=== PATIENT | male | born 1965 | race Caucasian/White ===

== ENCOUNTER 2020-06-02 05:21 | Inpatient (IN) | payer OTHER ==
[~2020-06-02] VITALS: Ht 180.3 cm; Wt 92.5 kg
--- NOTE | 2020-06-02 05:22 | NUR ---
PT AAOX4. BIBRA 102 FROM HOME C/O SOB. PER RA PT WAS GIVEN 2 SPRAYS OF NITRO 0.8MG EACH GIVEN ASSOCIATE ACCOUNTANT. PT PLACED IN BED 8 ON EDI COORDINATOR AND PULSE OX. PT NTOED TO BED SAT 94%, PLACED ON 2L NC, SAT 98%. AWAITING ER MD FOR EVAL. IV LINE PLACED ON RH 20G, BLOOD WORK COLLECTED, SENT TO LAB.
--- NOTE | 2020-06-02 05:57 | NUR ---
RADIOLOGY AT BEDSIDE
[2020-06-02 06:01] LABS: BASOPHILS # (AUTO) 0.1 /CMM (0.0-0.2); BASOPHILS % (AUTO) 0.4 % (0.0-2.0); EOSINOPHILS % (AUTO) 1.5 % (0.0-6.0); HEMATOCRIT 41 % (39-51); HEMOGLOBIN 13.2 g/dL (13.5-17.5); LYMPHOCYTES # (AUTO) 0.6 /CMM (0.8-4.8); LYMPHOCYTES % (AUTO) 4.4 % (20.0-44.0); MEAN CORPUSCULAR HGB CONC 33 g/dl (31.0-36.0); MEAN CORPUSCULAR VOLUME 86 fL (80-96); MONOCYTES # (AUTO) 0.9 /CMM (0.1-1.30); MONOCYTES % (AUTO) 6.4 % (2.0-12.0); NEUTROPHILS # (AUTO) 12.4 /CMM (1.8-8.9); NEUTROPHILS % (AUTO) 87.3 % (43.0-81.0); PLATELET COUNT (AUTO) 233 /CMM (150-450); RED BLOOD CELL COUNT(AUTO) 4.72 MIL/uL (4.5-6.0); WHITE BLOOD COUNT (AUTO) 14.2 K/uL (4.3-11.0)
[2020-06-02 06:09] LABS: CALCIUM, SERUM 8.9 mg/dL (8.5-10.1); CARBON DIOXIDE 25 mmol/L (21-32); CHLORIDE 103 mmol/L (98-107); CREATININE 1.3 mg/dL (0.6-1.3); GLUCOSE 103 mg/dL (74-106); POTASSIUM 4.3 mmol/L (3.5-5.1); SODIUM SERUM 137 mmol/L (136-145); UREA NITROGEN, BLOOD 17 mg/dL (7-18)
[2020-06-02] MEDS ORDERED: FUROSEMIDE 40 MG/4 ML VIAL ONE (06:13)
--- NOTE | 2020-06-02 06:20 | NUR ---
HECTORID SWABBED, SENT TO LAB.
[2020-06-02 06:22] LABS: ALANINE AMINOTRANSFERASE 31 U/L (12-78); ALBUMIN 3.7 g/dL (3.4-5.0); ALKALINE PHOSPHATASE 140 U/L (46-116); ASPARTATE AMINOTRANSFERASE 27 U/L (15-37); B-TYPE NATRIURETIC PEPTIDE 2888 PG/ML (0-125); BILIRUBIN,DIRECT 0.2 mg/dL (0.0-0.2); BILIRUBIN,TOTAL 0.7 mg/dL (0.2-1.0); TOTAL PROTEIN, SERUM 8.5 g/dL (6.4-8.2)
[2020-06-02] MEDS ORDERED: FUROSEMIDE 40 MG/4 ML VIAL IV ONE (06:30)
--- NOTE | 2020-06-02 07:22 | NUR ---
LAB CALLED REGARDING NEGATIVE COVID RESULT.
--- NOTE | 2020-06-02 08:02 | NUR ---
Call made to [facility] for admission. Assigned to Bed 314-2 per nursing supervisor keymodule assembly
[2020-06-02 08:30] VITALS: BP 156/98
[2020-06-02] MEDS ORDERED: ONDANSETRON HCL/PF 4 MG/2 ML VIAL IVP PRN ×2 (08:30→08:45)
[2020-06-02] MEDS ORDERED: MAGNESIUM HYDROXIDE 30 ML UDC PO PRN ×2 (08:30→08:45)
[2020-06-02] MEDS ORDERED: ACETAMINOPHEN 325 MG TABLET PO PRN ×2 (08:30→08:45)
[2020-06-02] MEDS ORDERED: MAG HYDROX/AL HYDROX/SIMETH 30 ML UDC PO PRN ×2 (08:30→08:45)
[2020-06-02] MEDS ORDERED: PANTOPRAZOLE 40 MG TABLET.DR PO SCH (08:30)
[2020-06-02] MEDS ORDERED: LORAZEPAM INJ 2 MG/ML VIAL IV PRN ×2 (08:30→08:45)
[2020-06-02] MEDS ORDERED: Z GUARD REMEDY 2 OZ OINT TP PRN ×2 (08:30→08:45)
[2020-06-02] MEDS ORDERED: ENOXAPARIN SODIUM 40 MG/0.4 ML DISP.SYRIN SQ SCH (08:30)
[2020-06-02] MEDS ORDERED: HYDROCODONE/APAP 5/325MG TABLET PO PRN (08:30)
[2020-06-02] MEDS ORDERED: TEMAZEPAM 15 MG CAPSULE PO PRN ×2 (08:30→08:45)
[2020-06-02] MEDS ORDERED: FURO-145 PO (08:37)
[2020-06-02] MEDS ORDERED: LISI10TA29 PO (08:37)
[2020-06-02] MEDS ORDERED: ASPI-1169 PO (08:37)
--- NOTE | 2020-06-02 08:42 | NUR ---
REPORT GIVEN TO SPEEDY QUEZADA FOR ELIS.
[2020-06-02] MEDS ORDERED: FUROSEMIDE 40 MG/4 ML VIAL IV SCH ×2 (09:00→09:15)
[2020-06-02] MEDS: ENOXAPARIN SODIUM 40 MG/0.4 ML DISP.SYRIN SQ SCH (09:00)
--- NOTE | 2020-06-02 09:00 | NUR ---
IRON MINER BLASTING NOTE PATIENT TRANSFERRED TO [facility]. PATIENT IS AWAKE IN BED. A/O X3 AND HUNGARIAN SPEAKING. NO COMPLAINT OF PAIN OR NAUSEA. CURRENTLY ON 2L NC WITH NO RESPIRATORY DISTRESS PRESENT. SINUS RHYTHM RECORDED ON EXTERNAL MONITOR. ON BEDREST WITH BATHROOM PRIVILEGES. SELF AMBULATORY. REDNESS PRESENT ON B LEGS. EDEMA PRESENT ON B LEGS. CARDIAC DIET. WEIGHT OF 217 ON ADMISSION. HL PRESENT ON R HAND 20G. SAFETY MEASURES IN PLACE. SIDE RAILS RAISED. BED LOWERED. CALL LIGHT WITHIN REACH. WILL CONTINUE TO MONITOR.
[2020-06-02] MEDS: FUROSEMIDE 40 MG/4 ML VIAL IV SCH ×3 (10:00→17:50)
[2020-06-02] MEDS: POTASSIUM CHLORIDE 20 MEQ TAB.PRT.SR PO SCH ×3 (10:17→14:14)
[2020-06-02] MEDS: ASPIRIN 81 MG TAB.CHEW PO SCH (10:17)
[2020-06-02] MEDS: LISINOPRIL (10MG) 10 MG TABLET PO SCH (10:18)
--- NOTE | 2020-06-02 10:32 | NUR ---
RN MEDICINE PATIENT REFUSE FUROSEMIDE 40 MG DUE TO PAINS DURING URINATING. EDUCATED ON RISKS AND BENEFITS OF DOING SO. WILL CONTINUE TO MONITOR.
[2020-06-02 16:00] VITALS: BP 159/97
--- NOTE | 2020-06-02 17:54 | NUR ---
RN NOTE PATIENT RUNNING FEVER OF >100F. ICE PACKS AND TYLENOL GIVEN. WILL CONTINUE TO MONITOR.
--- NOTE | 2020-06-02 17:55 | NUR ---
RN CLOSING NOTE PATIENT IS AWAKE IN BED. A/O X3 AND RUSSIAN SPEAKING. LETHARGY NOTED. NO COMPLAINT OF PAIN OR NAUSEA. CURRENTLY ON 2L NC WITH NO RESPIRATORY DISTRESS PRESENT. SINUS RHYTHM RECORDED ON EXTERNAL MONITOR. ON BEDREST WITH BATHROOM PRIVILEGES. SELF AMBULATORY. REDNESS PRESENT ON B LEGS. EDEMA PRESENT ON B LEGS. HL PRESENT ON R HAND 20G. ROUTINE MEDS GIVEN. SAFETY MEASURES IN PLACE. SIDE RAILS RAISED. BED LOWERED. CALL LIGHT WITHIN REACH. REPORT TO BE GIVEN TO NIGHT NURSE FOR ELIS.
[2020-06-02 20:00] VITALS: BP 122/78
--- NOTE | 2020-06-02 20:09 | NUR ---
LABORATORY SAMPLE CARRIER OPENING NOTES PATIENT WAS SEEN AWAKE IN BED. PT IS ALERT AND ORIENTED X3. PT HAS CELLULITIS ON HIS LEFT LEG. PT HAS A RIGHT HAND IV ACCESS #20 GAUGE. IV ACCESS INTACT AND PATENT. SAFETY PRECAUTIONS IN PLACE. PT IS ABLE TO MAKE HIS NEEDS KNOWN. WILL CONTINUE TO MONITOR THE PATIENT.
[2020-06-03] VITALS: BP 136/84
[2020-06-03 04:00] VITALS: BP 132/87
--- NOTE | 2020-06-03 07:46 | NUR ---
INTERVENTIONAL NEURORADIOLOGIST CLOSING NOTES PATIENT WAS SEEN AWAKE IN BED. PT IS ALERT AND ORIENTED X3. PT HAS CELLULITIS ON HIS LEFT LEG. PT HAS A LEFT WRIST IV ACCESS #22 GAUGE. IV ACCESS INTACT AND PATENT. SAFETY PRECAUTIONS IN PLACE. PT IS ABLE TO MAKE HIS NEEDS KNOWN. WILL ENDORSE CARE TO DAY SHIFT NURSE.
[2020-06-03] MEDS: PANTOPRAZOLE 40 MG TABLET.DR PO SCH (07:56)
[2020-06-03 08:00] VITALS: BP 116/89
--- NOTE | 2020-06-03 08:00 | NUR ---
RN OPENING NOTE RECEIVED PATIENT IN BED, AO X 3 ABLE TO RESPONDS ALL STIMULI. DENIES PAIN OR DISTRESS, SIN IS WARM TO TOUCH, KEEP CLEAN/DRY. RESPIRATORY EVEN AND UNLABORED WITH OXYGEN AT 2PLM VIA NC. KEPT ELEVATED HOB FOR ENSURE AIRWAY AND ASPIRATION PRECAUTION, ALSO LOWEST BED POSITION. CALL LIGHT WITHIN REACH, WILL CONTINUE TO MONITOR.
[2020-06-03] MEDS: ASPIRIN 81 MG TAB.CHEW PO SCH (08:47)
[2020-06-03] MEDS: ENOXAPARIN SODIUM 40 MG/0.4 ML DISP.SYRIN SQ SCH (08:51)
[2020-06-03] MEDS: LISINOPRIL (10MG) 10 MG TABLET PO SCH (08:51)
[2020-06-03] MEDS ORDERED: FUROSEMIDE 40 MG/4 ML VIAL IV SCH (09:00)
--- NOTE | 2020-06-03 09:00 | NUR ---
PT ON LASIX AND BP 116/89, BP MEDS WILL HOLD AT THIS TIME.
[2020-06-03] MEDS: POTASSIUM CHLORIDE 20 MEQ TAB.PRT.SR PO SCH ×3 (11:46→14:03)
[2020-06-03] MEDS: FUROSEMIDE 100 MG/10 ML VIAL IV SCH ×3 (11:47→20:56)
--- NOTE | 2020-06-03 14:24 | NUR ---
PATIENT NOTICED CELLULITIS ON LEFT LOWER LEG BUT NO ABT ORDER SO FAR, INFORMED MD REGARDING ABOVE. A WAITING RESPONDS.
--- NOTE | 2020-06-03 15:45 | NUR ---
RECEIVED NEW ORDER ATB IV, UA, AND DUPLEX VENOUS BILATERAL LOWER EXT. NOTED AND CARRY OUT.
[2020-06-03 16:05] VITALS: BP 134/83
[2020-06-03 17:19] LABS: BILIRUBIN,URINE NEGATIVE (NEGATIVE); COLOR,URINE YELLOW (YELLOW); LEUKOCYTE ESTERASE ,URINE NEGATIVE (NEGATIVE); NITRITE, URINE NEGATIVE (NEGATIVE); PH,URINE 6.5 (5.0-8.0); PROTEIN,URINE NEGATIVE (NEGATIVE); UGLUCOSE NEGATIVE (NEGATIVE); UROBILINOGEN,URINE 0.2 EU/dL (0.2)
[2020-06-03] MEDS: LEVOFLOXACIN 500 MG /D5W 100ML 500 MG in PREMIX 1 EA IV SCH (17:59)
--- NOTE | 2020-06-03 18:00 | NUR ---
RN CLOSING NOTE PATIENT IN ROOM, REMAINS AO X 3, RESTING AND DOES PAIN OR DISTRESS. SKIN IS WARM TO TOUCH, STARTED ATB IV PIGGY FOR CELLULITIS ON LEFT LEG NO S/S OF ADVERSE REACTION OBSERVED. RESPIRATORY EVEN AND UNLABORED ON ROOM AIR. KEPT ELEVATED HOB FOR ENSURE AIRWAY AND ASPIRATION PRECAUTION ALSO LOWEST BED POSITION FOR SAFETY. RECEIVED MEDICATION FOR TONIGHT DOSAGE X 3. WILL ENDORSE MEXICAN FOOD MACHINE TENDER.
[2020-06-03] MEDS: HYDROCODONE/APAP 5/325MG TABLET PO PRN (18:05)
--- NOTE | 2020-06-03 19:30 | NUR ---
MS RN OPENING NOTE RECEIVED PATIENT IN BED. A/OX3. TOLERATING ROOM AIR. RESPIRATION ARE EVEN AND UNLABORED. NO S/S SOB NOTED. NO S/S PAIN NOTED. IN NO APPARENT DISTRESS. IV ACCESS IN LEFT WRIST #22 PATENT AND SALINE LOCKED. BED IS LOW AND LOCKED, HOB ELEVATE DIN SEMI FOWLERS, SIDE RAILS UP X2, CALL LIGHT WITHIN REACH. WILL CONTINUE TO MONITOR THROUGHOUT SHIFT.
[2020-06-03 20:00] VITALS: BP 121/79
[2020-06-03] MEDS ORDERED: FUROSEMIDE 100 MG/10 ML VIAL ONE (20:54)
[2020-06-04 06:43] LABS: BASOPHILS # (AUTO) 0.1 /CMM (0.0-0.2); BASOPHILS % (AUTO) 0.5 % (0.0-2.0); EOSINOPHILS % (AUTO) 1.6 % (0.0-6.0); HEMATOCRIT 47 % (39-51); HEMOGLOBIN 15.8 g/dL (13.5-17.5); LYMPHOCYTES # (AUTO) 0.8 /CMM (0.8-4.8); LYMPHOCYTES % (AUTO) 7.3 % (20.0-44.0); MEAN CORPUSCULAR HGB CONC 34 g/dl (31.0-36.0); MEAN CORPUSCULAR VOLUME 85 fL (80-96); NEUTROPHILS # (AUTO) 8.8 /CMM (1.8-8.9); NEUTROPHILS % (AUTO) 81.6 % (43.0-81.0); PLATELET COUNT (AUTO) 186 /CMM (150-450); RED BLOOD CELL COUNT(AUTO) 5.51 MIL/uL (4.5-6.0); WHITE BLOOD COUNT (AUTO) 10.8 K/uL (4.3-11.0)
--- NOTE | 2020-06-04 07:03 | NUR ---
MS RN OPENING NOTE RECEIVED PT AWAKE IN BED AT THIS TIME. A/OX4. PT ABLE TO VERBALIZE NEEDS.NO SOB NOTED. CO C/O PAIN AT THIS TIME, NO S/O OF ANY ACUTE DISTRESS NOTED. PT STABLE ON RA. IV ACCESS NOTED IN LEFT WRIST G#22 INTACT, PATENT AND FLUSHING WELL. SAFETY PRECAUTIONS IN PLACE AND MAINTAINED AT ALL TIMES. BED IN LOWEST LOCKED POSITION, HOB ELEVATED, SIDE RAILS UP X2, CALL LIGHT AND TABLE WITHIN REACH. WILL CONTINUE TO MONITOR
--- NOTE | 2020-06-04 07:14 | NUR ---
MS RN CLOSING NOTE PATIENT IN BED. A/OX3. NO RESP DISTRESS NOTED. PAIN MANAGED WITH NORCO. NO DISTRESS. IV ACCESS MAINTAINED IN LEFT WRIST #2. BED REMAINS LOW AND LOCKED, HOB ELEVATE DIN SEMI FOWLERS, SIDE RAILS UP X2, CALL LIGHT WITHIN REACH. WILL ENDORSE TO ONCOMING SHIFT.
[2020-06-04 07:20] LABS: BILIRUBIN,TOTAL 0.6 mg/dL (0.2-1.0); CALCIUM, SERUM 8.8 mg/dL (8.5-10.1); CREATININE 1.5 mg/dL (0.6-1.3); MAGNESIUM 2.6 mg/dL (1.8-2.4); PHOSPHORUS 2.7 mg/dL (2.5-4.9); POTASSIUM 4.1 mmol/L (3.5-5.1); TOTAL PROTEIN, SERUM 8.8 g/dL (6.4-8.2)
[2020-06-04 08:00] VITALS: BP 112/73
[2020-06-04] MEDS: ASPIRIN 81 MG TAB.CHEW PO SCH (08:33)
[2020-06-04] MEDS: LISINOPRIL (10MG) 10 MG TABLET PO SCH (08:33)
[2020-06-04] MEDS: PANTOPRAZOLE 40 MG TABLET.DR PO SCH (08:33)
[2020-06-04] MEDS: ENOXAPARIN SODIUM 40 MG/0.4 ML DISP.SYRIN SQ SCH (08:43)
[2020-06-04 15:45] VITALS: BP 122/75
[2020-06-04] MEDS: LEVOFLOXACIN 500 MG /D5W 100ML 500 MG in PREMIX 1 EA IV SCH (18:02)
--- NOTE | 2020-06-04 18:44 | NUR ---
MS RN CLOSING NOTES PT AWAKE IN BED AT THIS TIME. PT REMAINED STABLE THROUGHOUT SHIFT.ALL CARE, NEEDS, MEDICATIONS AND TREATMENT ADMINISTERED ANTICIPATED PER ORDER. LINENS KEPT CLEAN. SAFETY PRECAUTIONS IN PLACE AND MAINTAINED AT ALL TIMES. BED IN LOWEST LOCKED POSITION, HOB ELEVATED, SIDE RAILS UPX2, CALL LIGHT AND TABLE WITHIN REACH. WILL ENDORSE TO FAMILY LIFE EDUCATOR NURSE FOR ELIS
[2020-06-04 19:13] LABS: BILIRUBIN,URINE NEGATIVE (NEGATIVE); COLOR,URINE YELLOW (YELLOW); LEUKOCYTE ESTERASE ,URINE NEGATIVE (NEGATIVE); NITRITE, URINE NEGATIVE (NEGATIVE); PH,URINE 5.5 (5.0-8.0); PROTEIN,URINE NEGATIVE (NEGATIVE); UGLUCOSE NEGATIVE (NEGATIVE); UROBILINOGEN,URINE 0.2 EU/dL (0.2)
[2020-06-04 19:17] LABS: CREATININE, URINE 137.3 MG/DL (30.0-125.0); EOSINOPHIL,URINE None Seen; URINE TOTAL PROTEIN 34.4 mg/dL (0-11.9)
--- NOTE | 2020-06-04 19:30 | NUR ---
RN opening notes Pt is laying in bed comfortably watching TV. Pt is alert and orientedX4. Respiration is normal in room air. No SOB. No S/S of distress noted. IV site at L wrist # 22 is clean, intact and infuising well levaquin. Noted BLE cellulitis. Pt is able to ambulate with a steady gait. Safety precautions is maintained. Bed at low position, brakes locked, side rails upX2, hob elevated and call light is within reach. Will continue to monitor.
[2020-06-04 20:00] VITALS: BP 114/73
[2020-06-04 20:01] VITALS: BP 114/73
--- NOTE | 2020-06-05 00:20 | NUR ---
RN notes Pt's complaining of itchy on L leg and above the knee. Informed and notified Dr. Henson. ordered zguard lotion and benadryl 25 m/po/one time if the lotion does not work. Applied lotion to L leg and above the knee. Pt verbalized understanding. Will continue to monitor.
[2020-06-05] MEDS: HYDROCODONE/APAP 5/325MG TABLET PO PRN (00:26)
--- NOTE | 2020-06-05 00:27 | NUR ---
RN notes Pt is complaining of pain on Left leg and L knee and requesting pain meds. Administered norco 5/po/prn as ordered for pain per Pt' requested. Safety precautions is maintained. Will continue to monitor.
--- NOTE | 2020-06-05 00:31 | NUR ---
RN notes Asked Pt about itchiness on left leg and above the knee. Pt stated "the lotion help with itchiness." Will continue to monitor.
[2020-06-05 06:38] LABS: BASOPHILS # (AUTO) 0.1 /CMM (0.0-0.2); BASOPHILS % (AUTO) 0.9 % (0.0-2.0); EOSINOPHILS % (AUTO) 3.7 % (0.0-6.0); HEMATOCRIT 47 % (39-51); HEMOGLOBIN 15.5 g/dL (13.5-17.5); LYMPHOCYTES # (AUTO) 1.2 /CMM (0.8-4.8); LYMPHOCYTES % (AUTO) 15.8 % (20.0-44.0); MEAN CORPUSCULAR HGB CONC 33 g/dl (31.0-36.0); MEAN CORPUSCULAR VOLUME 86 fL (80-96); MONOCYTES # (AUTO) 1.1 /CMM (0.1-1.30); MONOCYTES % (AUTO) 13.8 % (2.0-12.0); NEUTROPHILS % (AUTO) 65.8 % (43.0-81.0); PLATELET COUNT (AUTO) 212 /CMM (150-450); RED BLOOD CELL COUNT(AUTO) 5.42 MIL/uL (4.5-6.0); WHITE BLOOD COUNT (AUTO) 7.7 K/uL (4.3-11.0)
--- NOTE | 2020-06-05 06:50 | NUR ---
RN closing notes Pt is resting in bed comfortably. Pt is alert and orientedX4. Respiration is normal in room air. No SOB. No S/S of distress noted. VS is stable. Afebrile. IV site at L wrist # 22 is clean, intact and SL. Kept pt clean, dry and comfortable. Safety precautions is maintained. Bed at low position, brakes locked, side rails upX2, hob elevated and call light is within reach. Will endorse to morning nurse for ELIS.
[2020-06-05 07:06] LABS: CALCIUM, SERUM 8.9 mg/dL (8.5-10.1); CREATININE 1.4 mg/dL (0.6-1.3); MAGNESIUM 2.7 mg/dL (1.8-2.4); PHOSPHORUS 3.3 mg/dL (2.5-4.9); POTASSIUM 4.4 mmol/L (3.5-5.1)
--- NOTE | 2020-06-05 07:57 | NUR ---
MS RN OPENING NOTE RECEIVED PT AWAKE IN BED AT THIS TIME. A/OX4. PT ABLE TO MAKE NEEDS KNOWN. NO SOB NOTED. NO C/O PAIN AT THIS TIME, NO S/O OF ANY ACUTE DISTRESS NOTED. PT STABLE ON RA. IV ACCESS NOTED IN LEFT WRIST G#22 INTACT, PATENT AND FLUSHING WELL. PT ABLE TO AMBULATE WITH A STEADY GAIT. BLE CELLULITIS NOTED. SAFETY PRECAUTIONS IN PLACE AND MAINTAINED AT ALL TIMES. BED IN LOWEST LOCKED POSITION, HOB ELEVATED, SIDE RAILS UP X2, CALL LIGHT AND TABLE WITHIN REACH. WILL CONTINUE TO MONITOR
[2020-06-05 08:00] VITALS: BP 126/84
--- NOTE | 2020-06-05 08:04 | NUR ---
WOUND CARE CONSULT: PT PRESENTS WITH LEFT LOWER LEG SWELLING, SOME REDNESS AND DARK PINK/RED AREAS TO LEFT KNEE AND TO ANTERIOR THIGH. DEFER TO PMD. NO OPEN WOUNDS NOTED.
[2020-06-05 08:31] VITALS: BP 126/84
[2020-06-05] MEDS: PANTOPRAZOLE 40 MG TABLET.DR PO SCH (08:31)
[2020-06-05] MEDS: LISINOPRIL (10MG) 10 MG TABLET PO SCH (08:31)
[2020-06-05] MEDS: ENOXAPARIN SODIUM 40 MG/0.4 ML DISP.SYRIN SQ SCH (08:33)
[2020-06-05] MEDS: ASPIRIN 81 MG TAB.CHEW PO SCH (08:34)
[2020-06-05] MEDS ORDERED: LISI10TA29 PO (14:13)
[2020-06-05] MEDS ORDERED: LEVO500T90 PO (14:13)
--- NOTE | 2020-06-05 15:45 | NUR ---
PT PENDING DISCHARGE TO HOME AFTER LIFEVEST FITTING. PT LEFT AMA AT THIS TIME STATING " I AM LOSING MY CAT AND EVERYTHING AND CAN NOT WAIT FOR THE LIFE VEST". PT WOULD NOT EXPLAIN FURTHER WHAT HE MEANT BY "I AM LOSING EVERYTHING". ALL BENEFITS AND RISK OF LEAVING AMA PROVIDED, PT VERBALIZED UNDERSTANDING. CHRISTIAN, CHARGE NURSE, DR ALARCON MAKE AWARE. ANNIE, CASE MANAGEMENT CONTACTED. ANNIE SPOKE WITH PATIENT LETTING PATIENT KNOW THAT, HE NEEDS THE LIFE VEST PRIOR TO BEING DISCHARGE. PT REMAINED VERBALIZED UNDERSTANDING. PT'S BELONGING ACCOUNTED FOR, SIGNED BY PT, AND WITH PT. ID BAND REMOVED. IV ACCESS REMOVED, PRESSURE APPLIED, AND SECURED WITH GAUZE AND TAPE. NO S/O BLEEDING OR INFILTRATION NOTED. PICTURES TAKEN AND FILED IN CHART.
[2020-06-05] MEDS ORDERED: LEVOFLOXACIN (250MG) 250 MG TABLET PO SCH (18:00)
== END 2020-06-05 15:50 | disposition left against medical advice (07) | DRG 194 ==
LOC: ER 05:21 → TELE 09:07 → MED 06-03 09:48
PROVIDERS: ADMIT Nurse Practitioner Acute Care; ATTEND Student in an Organized Health Care Education/Training Program
DX: I13.0 Hypertensive heart and chronic kidney disease with heart failure and stage 1 through stage 4 chronic kidney disease, or unspecified chronic kidney disease (principal); N17.0 Acute kidney failure with tubular necrosis; E87.2 Acidosis; E22.2 Syndrome of inappropriate secretion of antidiuretic hormone; L03.116 Cellulitis of left lower limb; I50.23 Acute on chronic systolic (congestive) heart failure; E78.5 Hyperlipidemia, unspecified; N18.9 Chronic kidney disease, unspecified; J44.9 Chronic obstructive pulmonary disease, unspecified; Z88.0 Allergy status to penicillin; Z90.49 Acquired absence of other specified parts of digestive tract; F17.200 Nicotine dependence, unspecified, uncomplicated; Z91.14 Patient's other noncompliance with medication regimen; F41.9 Anxiety disorder, unspecified; N39.0 Urinary tract infection, site not specified; R09.02 Hypoxemia; R60.0 Localized edema; Z20.822 Contact with and (suspected) exposure to COVID-19
CPT/HCPCS: 36415; 71045-TC; 80048-TC; 80053-TC; 80076-TC; 82570-TC; 83605-TC; 83735-TC; 83880; 84100-TC; 84155-TC; 84300-TC; 84484-TC; 85025-TC; 85730-TC; 87040-TC; 87081-TC; 87086-TC; 93307-TC; 93970-TC; A4216; C9803; G0378; J1650; J1940; J1956; J7050

== ENCOUNTER 2020-07-20 04:13 | Emergency (ER) | payer OTHER ==
[~2020-07-20] VITALS: Ht 180.3 cm; Wt 95.3 kg
[~2020-07-20 04:13] MED LIST: ASPI-1169 PO; LEVO500T90 PO; LISI10TA29 PO
--- NOTE | 2020-07-20 04:26 | NUR ---
BIBRA 60 FOR C.O SOB X 3 DAYS WORSE ON SMOKING. PT W/ HX OF COPD AND CHF. HOLDING O2 SAT OF 98% ON RA. PT WAS PLACED IN ER BED 6, ON MONITOR
[2020-07-20] MEDS ORDERED: ALBUTEROL FS 2.5 MG/3 ML VIAL.NEB NEB ONE (04:30)
[2020-07-20] MEDS ORDERED: FUROSEMIDE 40 MG/4 ML VIAL IV ONE (04:30)
[2020-07-20] MEDS ORDERED: NITROGLYCERIN PACKET 1 GM PACKET TD ONE (04:30)
[2020-07-20] MEDS ORDERED: ENALAPRILAT DIHYD. (2.5MG/2ML) 1.25 MG/ML VIAL IV ONE (04:30)
[2020-07-20] MEDS ORDERED: ALBUTEROL FS 2.5 MG/3 ML VIAL.NEB ONE (04:31)
[2020-07-20 04:49] LABS: BASOPHILS # (AUTO) 0.1 /CMM (0.0-0.2); BASOPHILS % (AUTO) 1.3 % (0.0-2.0); EOSINOPHILS % (AUTO) 3.3 % (0.0-6.0); HEMATOCRIT 39 % (39-51); HEMOGLOBIN 12.6 g/dL (13.5-17.5); LYMPHOCYTES # (AUTO) 1.1 /CMM (0.8-4.8); LYMPHOCYTES % (AUTO) 21.7 % (20.0-44.0); MEAN CORPUSCULAR HGB CONC 33 g/dl (31.0-36.0); MEAN CORPUSCULAR VOLUME 89 fL (80-96); MONOCYTES # (AUTO) 0.4 /CMM (0.1-1.30); MONOCYTES % (AUTO) 8.4 % (2.0-12.0); NEUTROPHILS # (AUTO) 3.2 /CMM (1.8-8.9); NEUTROPHILS % (AUTO) 65.3 % (43.0-81.0); PLATELET COUNT (AUTO) 176 /CMM (150-450); RED BLOOD CELL COUNT(AUTO) 4.38 MIL/uL (4.5-6.0)
[2020-07-20] MEDS ORDERED: ENALAPRILAT INJ (1.25 MG/ML) 1.25 MG/ML VIAL IV ONE (04:51)
[2020-07-20] MEDS ORDERED: FUROSEMIDE 40 MG/4 ML VIAL ONE (04:51)
[2020-07-20] MEDS ORDERED: NITROGLYCERIN PACKET 1 GM PACKET ONE (04:52)
[2020-07-20 04:58] LABS: CALCIUM, SERUM 8.6 mg/dL (8.5-10.1); CREATININE 1.4 mg/dL (0.6-1.3); POTASSIUM 4.4 mmol/L (3.5-5.1)
[2020-07-20 05:10] LABS: ALBUMIN 3.4 g/dL (3.4-5.0); BILIRUBIN,DIRECT 0.2 mg/dL (0.0-0.2); BILIRUBIN,TOTAL 0.8 mg/dL (0.2-1.0); TOTAL PROTEIN, SERUM 7.9 g/dL (6.4-8.2)
--- NOTE | 2020-07-20 05:38 | NUR ---
DR REDDY AT BED SIDE
--- NOTE | 2020-07-20 06:39 | NUR ---
PAGED DR MIGUEL ANGEL PATINO, PCP TO REPORT THE
[2020-07-20] MEDS ORDERED: FURO-145 PO (09:04)
--- NOTE | 2020-07-20 09:28 | NUR ---
Patient discharged to home in stable condition. Written and verbal after care instructions given. Patient verbalizes understanding of instruction. IV removed. Catheter intact and site benign. Pressure and 4x4 applied to site. No bleeding noted.
[2020-07-20 09:29] VITALS: BP 142/86
== END 2020-07-20 09:29 | disposition home or self-care (01) ==
LOC: ER 04:15
DX: I11.0 Hypertensive heart disease with heart failure (principal); I50.9 Heart failure, unspecified; F17.210 Nicotine dependence, cigarettes, uncomplicated; Z59.0 Homelessness; Z90.49 Acquired absence of other specified parts of digestive tract; J44.9 Chronic obstructive pulmonary disease, unspecified; Z79.82 Long term (current) use of aspirin; Z79.899 Other long term (current) drug therapy; R60.0 Localized edema; R94.31 Abnormal electrocardiogram [ECG] [EKG]; Z20.822 Contact with and (suspected) exposure to COVID-19
CPT/HCPCS: 36415; 71045; 80048; 80076; 83880; 84484 ×2; 85025; 87426; 93005; 94640; 96374; 96375; 99285; 99406; C9803; J1940; J3490

== ENCOUNTER 2020-08-06 03:19 | Inpatient (IN) | payer OTHER ==
[~2020-08-06] VITALS: Ht 185.4 cm; Wt 89.4 kg
[~2020-08-06 03:19] MED LIST changes: +FURO-145 PO
--- NOTE | 2020-08-06 03:19 | NUR ---
C/O SOB HX OF CHF, PT TO BED 5, AAOX4, DENIES ANY CP. PT RECENTLY DC FROM [facility]. PLACED ON MONITOR. KAITLIN GUARDADO AT [facility] FOR EVAL
--- NOTE | 2020-08-06 03:25 | NUR ---
PIV STARTED, UNABLE TO GET BLOOD, PHLEB CALLED AT [facility]
[2020-08-06 04:12] LABS: BASOPHILS # (AUTO) 0.1 /CMM (0.0-0.2); BASOPHILS % (AUTO) 1.2 % (0.0-2.0); EOSINOPHILS % (AUTO) 2.2 % (0.0-6.0); HEMATOCRIT 41 % (39-51); HEMOGLOBIN 12.8 g/dL (13.5-17.5); LYMPHOCYTES % (AUTO) 16.4 % (20.0-44.0); MEAN CORPUSCULAR HGB CONC 31 g/dl (31.0-36.0); MEAN CORPUSCULAR VOLUME 90 fL (80-96); MONOCYTES # (AUTO) 0.6 /CMM (0.1-1.30); MONOCYTES % (AUTO) 9.3 % (2.0-12.0); NEUTROPHILS # (AUTO) 4.5 /CMM (1.8-8.9); NEUTROPHILS % (AUTO) 70.9 % (43.0-81.0); PLATELET COUNT (AUTO) 188 /CMM (150-450); RED BLOOD CELL COUNT(AUTO) 4.54 MIL/uL (4.5-6.0); WHITE BLOOD COUNT (AUTO) 6.4 K/uL (4.3-11.0)
[2020-08-06 04:26] LABS: CALCIUM, SERUM 8.8 mg/dL (8.5-10.1); CREATININE 1.3 mg/dL (0.6-1.3); POTASSIUM 4.8 mmol/L (3.5-5.1)
[2020-08-06] MEDS ORDERED: methylPREDNISolone SOD SUCC 125 MG/2ML VIAL IV ONE (04:30)
[2020-08-06] MEDS ORDERED: methylPREDNISolone SOD SUCC 125 MG/2ML VIAL ONE (04:38)
[2020-08-06 04:39] LABS: ALBUMIN 3.5 g/dL (3.4-5.0); BILIRUBIN,DIRECT 0.2 mg/dL (0.0-0.2); BILIRUBIN,TOTAL 0.6 mg/dL (0.2-1.0); TOTAL PROTEIN, SERUM 7.7 g/dL (6.4-8.2)
[2020-08-06] MEDS ORDERED: ASPIRIN 325 MG TABLET ONE (04:55)
[2020-08-06] MEDS ORDERED: FUROSEMIDE 40 MG/4 ML VIAL ONE (04:55)
[2020-08-06] MEDS ORDERED: FUROSEMIDE 40 MG/4 ML VIAL IV ONE (05:00)
[2020-08-06] MEDS ORDERED: ASPIRIN 325 MG TABLET PO ONE (05:00)
[2020-08-06] MEDS ORDERED: ZOLPIDEM TARTRATE 5 MG TABLET PO PRN (07:00)
[2020-08-06] MEDS ORDERED: ACETAMINOPHEN 325 MG TABLET PO PRN (07:00)
[2020-08-06] MEDS ORDERED: ALBUTEROL FS 2.5 MG/0.5 ML VIAL.NEB NEB PRN (07:00)
[2020-08-06] MEDS ORDERED: HYDROCODONE/APAP 5/325MG TABLET PO PRN (07:00)
[2020-08-06] MEDS ORDERED: ONDANSETRON HCL/PF 4 MG/2 ML VIAL IVP PRN (07:00)
--- NOTE | 2020-08-06 07:27 | NUR ---
REPORT GIVEN TO ARIS RUFF FOR ELIS
[2020-08-06] MEDS: PANTOPRAZOLE 40 MG TABLET.DR PO SCH (07:30)
--- NOTE | 2020-08-06 07:36 | NUR ---
RECEIVED REPORT FROM SPEEDY CARVALHO FOR ELIS. PT IS AAOX4, NOT IN RESPIRATORY DISTRESS, HOOKED TO AUTOMOTIVE INTERNET SALES MANAGER, KEPT RESTED AND COMFORTABLE. WILL CONTINUE TO MONITOR.
[2020-08-06 08:00] VITALS: BP 178/117
--- NOTE | 2020-08-06 08:04 | NUR ---
REPORT GIVEN TO SPEEDY CHEN FOR ELIS.
[2020-08-06 09:00] VITALS: BP 178/117
[2020-08-06] MEDS: ENOXAPARIN SODIUM 40 MG/0.4 ML DISP.SYRIN SQ SCH (09:45)
[2020-08-06] MEDS: ASPIRIN 81 MG TAB.CHEW PO SCH (09:45)
[2020-08-06] MEDS: FUROSEMIDE 20 MG/2 ML VIAL IV SCH ×2 (09:45→18:12)
[2020-08-06] MEDS: DOCUSATE SODIUM 100 MG CAPSULE PO SCH ×2 (09:45→18:12)
[2020-08-06] MEDS: LISINOPRIL (10MG) 10 MG TABLET PO SCH (09:46)
[2020-08-06] MEDS: NICOTINE PATCH (14MG) 14 MG PATCH.TD24 TD SCH (09:46)
[2020-08-06 12:00] VITALS: BP 137/99
[2020-08-06 16:00] VITALS: BP 151/93
--- NOTE | 2020-08-06 19:35 | NUR ---
RN OPENING NOTES RECEIVED PT IN BED AWAKE, A/O X4 PT ON ROOM AIR. NO RESP DISTRESS NOTED. PT DENIES SOB AT THIS TIME. PT TOLERATING WELL. O2 SAT 94% PT ON TELE MONITORING HEART RATE OF 92 NOTED. BASELINE TO PT. PT DENIES PAIN. VERBALIZES DESIRE TO REST. IV SITE FLUSHED ASEPTICALLY. NO S/S OF INFILTRATION NOTED. PT IS AMBULATORY WITH STEADY GAIT. SAFETY MEASURES IN PLACE HOB ELEVATED SIDE RAILS UP X2 BED LOCKED IN LOWEST POSITION WITH BED ALARM ON. CALL LIGHT WITHIN REACH.
[2020-08-06 20:00] VITALS: BP 153/91
[2020-08-07] VITALS: BP 146/96
--- NOTE | 2020-08-07 02:20 | NUR ---
RN NOTE PT AMBULATORY WITH STEADY GAIT, PT REFUSES BED BATH, MOTIVATED TO SELF CARE. HYGIENE PRODUCTS PROVIDED.
[2020-08-07 04:00] VITALS: BP 143/96
[2020-08-07 05:57] LABS: BASOPHILS % (AUTO) 0.2 % (0.0-2.0); HEMATOCRIT 40 % (39-51); LYMPHOCYTES % (AUTO) 8.7 % (20.0-44.0); MEAN CORPUSCULAR HGB CONC 33 g/dl (31.0-36.0); MEAN CORPUSCULAR VOLUME 88 fL (80-96); NEUTROPHILS # (AUTO) 9.3 /CMM (1.8-8.9); NEUTROPHILS % (AUTO) 82.1 % (43.0-81.0); PLATELET COUNT (AUTO) 208 /CMM (150-450); RED BLOOD CELL COUNT(AUTO) 4.54 MIL/uL (4.5-6.0); WHITE BLOOD COUNT (AUTO) 11.3 K/uL (4.3-11.0)
[2020-08-07 06:31] LABS: ALBUMIN 3.3 g/dL (3.4-5.0); BILIRUBIN,TOTAL 0.7 mg/dL (0.2-1.0); CALCIUM, SERUM 8.5 mg/dL (8.5-10.1); CREATININE 1.4 mg/dL (0.6-1.3); MAGNESIUM 2.4 mg/dL (1.8-2.4); PHOSPHORUS 4.4 mg/dL (2.5-4.9); POTASSIUM 4.3 mmol/L (3.5-5.1); TOTAL PROTEIN, SERUM 7.6 g/dL (6.4-8.2)
[2020-08-07 06:49] LABS: THYROID STIMULATING HORMONE 0.228 uIU/mL (0.358-3.74)
--- NOTE | 2020-08-07 07:08 | NUR ---
RN CLOSING NOTE PT STILL REMAINS ON ROOM AIR NO DISTRESS NOTED. ALL NEEDS ATTENDED AT THIS TIME. SOFT FORMED. NO SIGNIFICANT CHANGES TO PT CONDITION THROUGHOUT SHIFT. PT AFEBRILE. ALL SAFETY MEASURES IN PLACE. HOB ELEVATED. SIDE RAILS UP X2 BED LOCKED IN LOWEST POSITION WITH BED ALARM ON. CALL LIGHT WITHIN REACH. ENDORSED TO DAY SHIFT FOR CONTINUATION OF CARE.
--- NOTE | 2020-08-07 07:25 | NUR ---
RN OPENING NOTE PATIENT RECEIVED IN BED RESTING IN SUPINE POSITION. PATIENT A/O X4 AND ON ROOM AIR TOLERATING WELL. NO RESP DISTRESS NOTED. PT DENIES SOB AT THIS TIME. PT TOLERATING WELL. TELE MONITOR ON. PT DENIES PAIN. RIGHT UPPER ARM MIDLINE INTACT AND PATENT, FLUSHED. NO S/S OF INFILTRATION NOTED. SAFETY PRECAUTIONS IMPLEMENTED, SIDE RAILS UP X2, BED LOCKED IN LOWEST POSITION, BED ALARM ON, CALL LIGHT WITHIN REACH. WILL CONTINUE TO MONITOR AND PROVIDE CARE THROUGHOUT SHIFT.
[2020-08-07 08:00] VITALS: BP 141/94
[2020-08-07] MEDS: NICOTINE PATCH (14MG) 14 MG PATCH.TD24 TD SCH ×2 (09:00→09:30)
[2020-08-07] MEDS ORDERED: ENOXAPARIN SODIUM 40 MG/0.4 ML DISP.SYRIN SQ SCH (09:00)
[2020-08-07] MEDS ORDERED: LOSARTAN POTASSIUM 50 MG TABLET PO SCH (09:00)
[2020-08-07] MEDS: FUROSEMIDE 40 MG/4 ML VIAL IV SCH ×3 (09:29→16:16)
[2020-08-07] MEDS: POTASSIUM CHLORIDE 20 MEQ TAB.PRT.SR PO SCH ×3 (09:29→11:26)
[2020-08-07] MEDS: PANTOPRAZOLE 40 MG TABLET.DR PO SCH (09:29)
[2020-08-07] MEDS: DOCUSATE SODIUM 100 MG CAPSULE PO SCH ×3 (09:29→17:00)
[2020-08-07] MEDS: ASPIRIN 81 MG TAB.CHEW PO SCH (09:29)
[2020-08-07] MEDS: LISINOPRIL (10MG) 10 MG TABLET PO SCH (09:30)
[2020-08-07] MEDS: ENOXAPARIN SODIUM 40 MG/0.4 ML DISP.SYRIN SQ SCH (09:34)
[2020-08-07 09:43] LABS: THYROID STIMULATING HORMONE 0.217 uIU/mL (0.358-3.74)
[2020-08-07 12:00] VITALS: BP 132/96
[2020-08-07 16:00] VITALS: BP 134/96
--- NOTE | 2020-08-07 18:45 | NUR ---
RN CLOSING NOTE PATIENT IN BED RESTING IN SUPINE POSITION. PATIENT A/O X4 AND ON O2 THERAPY VIA NC AT 2 LPM TOLERATING WELL. NO RESP DISTRESS NOTED. PT DENIES SOB AT THIS TIME. PT TOLERATING WELL. TELE MONITOR ON. PT DENIES PAIN. RIGHT UPPER ARM MIDLINE INTACT AND PATENT, FLUSHED. NO S/S OF INFILTRATION NOTED. SAFETY PRECAUTIONS IMPLEMENTED, SIDE RAILS UP X2, BED LOCKED IN LOWEST POSITION, BED ALARM ON, CALL LIGHT WITHIN REACH. WILL ENDORSE CARE TO UPCOMING SHIFT.
--- NOTE | 2020-08-07 19:50 | NUR ---
RN OPENING NOTES RECEIVED PT IN BED AWAKE, A/O X4 PT ON 2L OF O2 VIA NASAL CANNULA. NO RESP DISTRESS NOTED. PT DENIES SOB AT THIS TIME. PT TOLERATING WELL. PT ON TELE MONITORING HEART RATE OF 92 NOTED. BASELINE TO PT. PT DENIES PAIN. KATHERINE MIDLINE, IV SITE FLUSHED ASEPTICALLY. NO S/S OF INFILTRATION NOTED. ALL NEEDS ATTENDED. PT IS AMBULATORY WITH STEADY GAIT. SAFETY MEASURES IN PLACE HOB ELEVATED SIDE RAILS UP X2 BED LOCKED IN LOWEST POSITION WITH BED ALARM ON. CALL LIGHT WITHIN REACH.
[2020-08-07 20:00] VITALS: BP 137/98
[2020-08-08] VITALS: BP 131/96
--- NOTE | 2020-08-08 01:10 | NUR ---
RN NOTE-MRSA @0055 PER ELVIRA FROM [facility], RESULTS POSITIVE FOR MRSA RIGHT NARE. NOTIFIED CONFERENCE SERVICE COORDINATOR MD DR DONALD, ORDERS FOR BACTROBAN X5DAYS CARRIED OUT.
[2020-08-08 04:00] VITALS: BP 139/92
[2020-08-08 06:26] LABS: BASOPHILS # (AUTO) 0.1 /CMM (0.0-0.2); EOSINOPHILS % (AUTO) 1.7 % (0.0-6.0); HEMATOCRIT 42 % (39-51); HEMOGLOBIN 13.6 g/dL (13.5-17.5); LYMPHOCYTES # (AUTO) 1.7 /CMM (0.8-4.8); MEAN CORPUSCULAR HGB CONC 33 g/dl (31.0-36.0); MEAN CORPUSCULAR VOLUME 87 fL (80-96); MONOCYTES # (AUTO) 0.6 /CMM (0.1-1.30); NEUTROPHILS # (AUTO) 6.3 /CMM (1.8-8.9); NEUTROPHILS % (AUTO) 71.3 % (43.0-81.0); PLATELET COUNT (AUTO) 223 /CMM (150-450); RED BLOOD CELL COUNT(AUTO) 4.77 MIL/uL (4.5-6.0); WHITE BLOOD COUNT (AUTO) 8.8 K/uL (4.3-11.0)
[2020-08-08 06:37] LABS: CALCIUM, SERUM 8.3 mg/dL (8.5-10.1); CREATININE 1.4 mg/dL (0.6-1.3); MAGNESIUM 2.4 mg/dL (1.8-2.4); PHOSPHORUS 3.8 mg/dL (2.5-4.9); POTASSIUM 4.2 mmol/L (3.5-5.1)
--- NOTE | 2020-08-08 06:54 | NUR ---
RN CLOSING NOTE PT SLEPT INTERMITTENTLY. PT CONDITION REMAINS UNCHANGED. PT IS LABORED BREATHING ON EXERTION. PT DENIES PAIN. ALL NEEDS ATTENDED. SAFETY MEASURES IN PLACE HOB ELEVATED SIDE RAILS UP X2 BED LOCKED IN LOWEST POSITION WITH BED ALARM ON. CALL LIGHT WITHIN REACH. WILL ENDORSE TO DAY SHIFT FOR CONTINUATION OF CARE.
--- NOTE | 2020-08-08 07:30 | NUR ---
DETENTION DEPUTY NOTES PT IN BED, ASLEEP, EASY TO AROUSE, ALERT AND ORIENTED, NO COMPLAINT OF PAIN OR ANY DISCOMFORT, RESPIRATIONS NORMAL, CALL LIGHT WITHIN REACH, NEEDS ATTENDED.
[2020-08-08 08:00] VITALS: BP 138/104
[2020-08-08] MEDS: NICOTINE PATCH (14MG) 14 MG PATCH.TD24 TD SCH (08:42)
[2020-08-08] MEDS: ASPIRIN 81 MG TAB.CHEW PO SCH (08:42)
[2020-08-08] MEDS: LISINOPRIL (10MG) 10 MG TABLET PO SCH (08:42)
[2020-08-08] MEDS: PANTOPRAZOLE 40 MG TABLET.DR PO SCH (08:42)
[2020-08-08] MEDS: MUPIROCIN OINT 2% 22 GM TUBE TP SCH (08:42)
[2020-08-08] MEDS: DOCUSATE SODIUM 100 MG CAPSULE PO SCH ×3 (08:42→17:00)
[2020-08-08] MEDS: ENOXAPARIN SODIUM 40 MG/0.4 ML DISP.SYRIN SQ SCH (08:51)
[2020-08-08] MEDS: FUROSEMIDE 100 MG/10 ML VIAL IV SCH ×3 (08:53→17:48)
[2020-08-08] MEDS: IPRATROPIUM NEB FS 0.5 MG/2.5 ML AMPUL.NEB NEB SCH ×4 (10:58→23:22)
[2020-08-08] MEDS: methylPREDNISolone SOD SUCC 40 MG/ML VIAL IV SCH ×3 (11:24→20:52)
[2020-08-08 12:00] VITALS: BP 135/93
[2020-08-08 16:00] VITALS: BP 141/88
--- NOTE | 2020-08-08 18:58 | NUR ---
ARCHITECTURAL SALES CONSULTANT NOTES PT AWAKE, ALERT AND ORIENTED, NO COMPLAINT OF PAIN, BREATHING PATTERN NORMAL, CALL LIGHT WITHIN REACH, AMBULATES WITH STEADY GAIT, DUE MEDS GIVEN ORDERED, STATED HE FEELS BETTER, PM MEDS GIVEN, ALL NEEDS ATTENDED.
--- NOTE | 2020-08-08 19:37 | NUR ---
RN NOTE PATIENT ALERT AND ORIENTED X4, ABLE TO MAKE NEEDS KNOWN. NO RESPIRATORY DISTRESS NOTED. DENIES ANY PAIN AT THIS TIME. WITH KATHERINE MIDLINE, PATENT AND INTACT. BED LOCKED AND IN LOWEST POSITION. CALL LIGHT WITHIN REACH. ALL NEEDS ANTICIPATED.
[2020-08-08 20:00] VITALS: BP 134/82
--- NOTE | 2020-08-08 20:59 | NUR ---
PATIENT REQUESTED FOR SLEEPING AID, STATED HE DIDN'T GET ANY SLEEP LAST NIGHT. ADMINISTERED AMBIEN 5MG ORDERED. CALL LIGHT WITHIN REACH.
[2020-08-09] VITALS: BP 113/70
[2020-08-09] MEDS: IPRATROPIUM NEB FS 0.5 MG/2.5 ML AMPUL.NEB NEB SCH ×3 (03:25→10:58)
[2020-08-09 04:00] VITALS: BP 133/80
[2020-08-09] MEDS: methylPREDNISolone SOD SUCC 40 MG/ML VIAL IV SCH (04:15)
[2020-08-09 06:29] LABS: BASOPHILS % (AUTO) 0.3 % (0.0-2.0); HEMATOCRIT 48 % (39-51); HEMOGLOBIN 15.6 g/dL (13.5-17.5); LYMPHOCYTES # (AUTO) 0.7 /CMM (0.8-4.8); MEAN CORPUSCULAR HGB CONC 32 g/dl (31.0-36.0); MEAN CORPUSCULAR VOLUME 87 fL (80-96); MONOCYTES # (AUTO) 0.2 /CMM (0.1-1.30); MONOCYTES % (AUTO) 2.4 % (2.0-12.0); NEUTROPHILS # (AUTO) 8.7 /CMM (1.8-8.9); NEUTROPHILS % (AUTO) 90.3 % (43.0-81.0); PLATELET COUNT (AUTO) 261 /CMM (150-450); RED BLOOD CELL COUNT(AUTO) 5.54 MIL/uL (4.5-6.0); WHITE BLOOD COUNT (AUTO) 9.7 K/uL (4.3-11.0)
--- NOTE | 2020-08-09 06:55 | NUR ---
RN NOTE PATIENT ALERT AND ORIENTED X4. NO RESPIRATORY DISTRESS NOTED. WITH KATHERINE MIDLINE, PATENT AND INTACT. ALL NEEDS ATTENDED PROMPTLY. DUE MEDS GIVEN ORDERED. BED LOCKED AND IN LOWEST POSITION. CALL LIGHT WITHIN REACH. WILL ENDORSE TO AM SHIFT.
--- NOTE | 2020-08-09 07:36 | NUR ---
DELI SLICER OPENING NOTES RECEIVED PT AWAKE IN BED IN NO ACUTE SIGNS OF DISTRESS. A/O X4. VERBALLY RESPONSIVE, DENIES PAIN OR ANY DISCOMFORTS AT THIS TIME. ON ROOM AIR, BREATHING EVEN AND UNLABORED, NO SOB NOTED. ON TELE MONITOR WITH CURRENT READING OF NSR WITH HR ON THE 80'S, NO C/O CARDIAC DISTRESS VOICED AT THIS TIME. KATHERINE MIDLINE INTACT, PATENT AND FLUSHES WELL. SAFETY MEASURES IN PLACE: CALL LIGHT WITHIN REACH, BED LOCKED AND IN LOWEST POSITION WITH SIDE RAILS UP X2. WILL CONTINUE TO MONITOR.
[2020-08-09 08:00] VITALS: BP 140/89
[2020-08-09] MEDS: ASPIRIN 81 MG TAB.CHEW PO SCH (08:19)
[2020-08-09] MEDS: DOCUSATE SODIUM 100 MG CAPSULE PO SCH ×2 (08:19→08:30)
[2020-08-09] MEDS: PANTOPRAZOLE 40 MG TABLET.DR PO SCH (08:19)
[2020-08-09 08:20] VITALS: BP 140/89
[2020-08-09] MEDS: LISINOPRIL (10MG) 10 MG TABLET PO SCH (08:20)
[2020-08-09] MEDS: ENOXAPARIN SODIUM 40 MG/0.4 ML DISP.SYRIN SQ SCH (08:20)
[2020-08-09] MEDS: NICOTINE PATCH (14MG) 14 MG PATCH.TD24 TD SCH (08:21)
[2020-08-09 08:55] LABS: ALBUMIN 3.5 g/dL (3.4-5.0); BILIRUBIN,TOTAL 0.9 mg/dL (0.2-1.0); CALCIUM, SERUM 8.4 mg/dL (8.5-10.1); CREATININE 1.5 mg/dL (0.6-1.3); MAGNESIUM 2.4 mg/dL (1.8-2.4); PHOSPHORUS 4.4 mg/dL (2.5-4.9); POTASSIUM 4.2 mmol/L (3.5-5.1); TOTAL PROTEIN, SERUM 8.3 g/dL (6.4-8.2)
[2020-08-09] MEDS ORDERED: POTASSIUM CHLORIDE 20 MEQ TAB.PRT.SR PO SCH (09:00)
[2020-08-09] MEDS ORDERED: FUROSEMIDE 40 MG TABLET PO SCH (09:00)
[2020-08-09] MEDS: MUPIROCIN OINT 2% 22 GM TUBE TP SCH (09:48)
--- NOTE | 2020-08-09 13:55 | NUR ---
RN DISCHARGED NOTES PT DISCHARGED HOME IN STABLE CONDITION A/ O X4, ABLE TO MAKE NEEDS KNOWN. V/S TAKEN , STABLE AND RECORDED. NO SKIN IMPAIRMENTS NOTED. ALL BELONGINGS ACCOUNTED FOR NAD SIGNED FORM. KATHERINE MIDLINE REMOVED WITH NO BLEEDING NOTED, DRY DRESSING APPLIED TO SITE. NAME ARMBAND REMOVED. SMOKING CESSATION EDUCATION GIVEN. HEALTH TEACHINGS/DISCHARGED INSTRUCTIONS GIVEN TO PT AND VERBALIZED UNDERSTANDING. PT LEFT UNIT AT 1353 AMBULATORY WITH STEADY GAIT ACCOMPANIED BY KANA AMARO TO NATALIIA. AND JAYLEEN AWARE OF DISCHARGE.
== END 2020-08-09 13:55 | disposition home or self-care (01) | DRG 194 ==
LOC: ER 03:19 → TELE1 07:32 → MEDSG1 08-09 09:32
PROVIDERS: ADMIT Student in an Organized Health Care Education/Training Program
PROC: 05H933Z Insertion of Infusion Device into Right Brachial Vein, Percutaneous Approach (ICD-10-PCS; principal; 2020-08-06)
DX: I11.0 Hypertensive heart disease with heart failure (principal); N17.0 Acute kidney failure with tubular necrosis; J96.00 Acute respiratory failure, unspecified whether with hypoxia or hypercapnia; E86.0 Dehydration; F17.200 Nicotine dependence, unspecified, uncomplicated; J44.9 Chronic obstructive pulmonary disease, unspecified; Z59.0 Homelessness; Z90.49 Acquired absence of other specified parts of digestive tract; Z88.0 Allergy status to penicillin; Z79.82 Long term (current) use of aspirin; Z79.899 Other long term (current) drug therapy; D64.9 Anemia, unspecified; I42.9 Cardiomyopathy, unspecified; J84.9 Interstitial pulmonary disease, unspecified; I50.21 Acute systolic (congestive) heart failure; Z20.822 Contact with and (suspected) exposure to COVID-19
CPT/HCPCS: 36415; 71045-TC; 80048-TC; 80053-TC; 80061-TC; 80076-TC; 83735-TC; 83880; 84100-TC; 84439-TC; 84443-TC; 84484-TC; 85025-TC; 87081-TC; C9803; G0378; G0480; J1650; J1940; J2920; J2930

== ENCOUNTER 2022-03-16 02:58 | Emergency (ER) | payer OTHER ==
[~2022-03-16] VITALS: Ht 180.3 cm; Wt 95.3 kg
[2022-03-16 03:39] VITALS: BP 138/90
[2022-03-16] MEDS ORDERED: CLIN300C12 PO (03:55)
--- NOTE | 2022-03-16 04:01 | NUR ---
Patient discharged to home in stable condition. RX Written and verbal after care instructions given. Patient verbalizes understanding of instruction.
== END 2022-03-16 04:09 | disposition home or self-care (01) ==
LOC: ER 03:13
DX: L03.115 Cellulitis of right lower limb (principal); I10 Essential (primary) hypertension; Z90.49 Acquired absence of other specified parts of digestive tract; Z88.0 Allergy status to penicillin; Z79.82 Long term (current) use of aspirin; Z79.899 Other long term (current) drug therapy

== ENCOUNTER 2022-04-12 07:42 | Emergency (ER) | payer OTHER ==
[~2022-04-12] VITALS: Ht 182.9 cm; Wt 97.5 kg
[~2022-04-12 07:42] MED LIST changes: +CLIN300C12 PO
[2022-04-12] MEDS ORDERED: CEFTRIAXONE 1 G in IV D5W 50 ML IV ONE (08:30)
[2022-04-12] MEDS ORDERED: VANCOMYCIN 1 GM in IV D5W 250 ML IV ONE (08:30)
--- NOTE | 2022-04-12 08:30 | NUR ---
BIBSELF C/O RIGHT LEG SWELLING FOR ONE MONTH.
--- NOTE | 2022-04-12 08:35 | NUR ---
XRAY AT BEDSIDE
--- NOTE | 2022-04-12 09:07 | NUR ---
COVID SWAB OBTAINED
--- NOTE | 2022-04-12 09:13 | NUR ---
WOUND SWAB TAKEN SENT TO LAB
--- NOTE | 2022-04-12 09:24 | NUR ---
LAB AT BEDSIDE FOR BLOOD DRAW
--- NOTE | 2022-04-12 09:47 | NUR ---
CALLED DR. WOODALL [phone] REDDY.
[2022-04-12 10:49] LABS: BASOPHILS # (AUTO) 0.1 K/uL (0.0-0.2); BASOPHILS % (AUTO) 0.6 % (0.0-2.0); EOSINOPHILS % (AUTO) 2.3 % (0.0-6.0); HEMATOCRIT 42 % (39-51); HEMOGLOBIN 13.6 g/dL (13.5-17.5); LYMPHOCYTES % (AUTO) 12.5 % (20.0-44.0); MEAN CORPUSCULAR HGB CONC 32 g/dl (31.0-36.0); MEAN CORPUSCULAR VOLUME 87 fL (80-96); MONOCYTES # (AUTO) 0.9 K/uL (0.1-1.30); MONOCYTES % (AUTO) 10.5 % (2.0-12.0); NEUTROPHILS # (AUTO) 6.2 K/uL (1.8-8.9); NEUTROPHILS % (AUTO) 74.1 % (43.0-81.0); PLATELET COUNT (AUTO) 220 K/uL (150-450); RED BLOOD CELL COUNT(AUTO) 4.85 MIL/uL (4.5-6.0); WHITE BLOOD COUNT (AUTO) 8.4 K/uL (4.3-11.0)
--- NOTE | 2022-04-12 11:36 | NUR ---
LYNDA ([facility] INSULATION SPRAYER) ASKING FOR LAB AND HORACE REPORT, STILL PENDING. WILL PRINT AND FAX WHEN RESULTS ARE AVAILABLE. FAX #: [phone] PHONE #: [phone]
--- NOTE | 2022-04-12 11:55 | NUR ---
FOLLOWED UP CHEMISTRY RESULTS WITH LAB. PER DISTANCE LEARNING COORDINATOR MAHI, PATIENT WAS HARD STICK, BLOOD DRAWN TWICE. RESULTS WILL BE OUT/UPLOADED IN 15-20MIN
[2022-04-12 12:00] VITALS: BP 110/90
--- NOTE | 2022-04-12 12:14 | NUR ---
PT ACCEPTED TO [facility] UNDER [address]. WOODALL BED [id number] PLEASE CALL [phone] FOR REPORT. LYNDA WOULD LIKE A CALL [phone] WITH TRANSPORT ETA. ALSO REQUESTING FAXING OF COVID RESULT TO [phone].
[2022-04-12 12:15] LABS: BILIRUBIN,DIRECT 0.2 mg/dL (0.0-0.2)
[2022-04-12 12:19] LABS: POTASSIUM 4.1 mmol/L (3.5-5.1)
[2022-04-12 12:20] LABS: ALBUMIN 3.1 g/dL (3.4-5.0); BILIRUBIN,TOTAL 1.1 mg/dL (0.2-1.0); CALCIUM, SERUM 8.8 mg/dL (8.5-10.1); CREATININE 1.3 mg/dL (0.6-1.3); TOTAL PROTEIN, SERUM 8.4 g/dL (6.4-8.2)
--- NOTE | 2022-04-12 12:22 | NUR ---
CALLED [facility] FOR TRANSPORT ETA 60 MINS.
--- NOTE | 2022-04-12 12:23 | NUR ---
CALLED LYNDA PORRAS [facility] [phone] ABOUT TRANSPORT ETA 60 MINS.
--- NOTE | 2022-04-12 13:56 | NUR ---
PATIENT PICKED UP BY [facility] IN STABLE CONDITION AND WILL BE TRANSFERRED TO [facility].
--- NOTE | 2022-04-13 12:07 | NUR ---
RECEIVED RESULTS FROM WEB FEEDER: GRAM POSITIVE COCCI FOR BLOOD CULTURE
--- NOTE | 2022-04-13 12:14 | NUR ---
CALLED [phone] ([facility]), SPOKE TO ADITI ZAFAR RN, REPORTED GRAM POSITIVE COCCI FOR BLOOD CULTURE. WILL FAX OFFICIAL RESULTS TO: [phone]
== END 2022-04-12 13:30 | disposition short-term general hospital (02) ==
LOC: ER 08:03
DX: L03.115 Cellulitis of right lower limb (principal); R60.0 Localized edema; Z20.822 Contact with and (suspected) exposure to COVID-19; Z59.00 Homelessness unspecified; Z90.49 Acquired absence of other specified parts of digestive tract; Z28.310 Unvaccinated for COVID-19; E78.5 Hyperlipidemia, unspecified; I11.0 Hypertensive heart disease with heart failure; I50.9 Heart failure, unspecified
CPT/HCPCS: 99285; 93970; 96365; 71045; 96366 ×2; 87426; 96368; 93005 ×2; 87040 ×4; 85025; 80048; 80076; 36415; 87070; J0696; J3370; J7060; C9803

== ENCOUNTER 2022-12-30 06:08 | Inpatient (IN) | payer OTHER ==
[~2022-12-30] VITALS: Ht 175.3 cm; Wt 80.7 kg
[2022-12-30] VITALS (9 sets, daily range): BP systolic 106–151; BP diastolic 71–109; TEMP 98.7–99.1; O2SAT 95–98
[2022-12-30] MEDS ORDERED: SODIUM BICARBONATE SYR 50 MEQ/50 ML DISP.SYRIN IV ONE (06:10)
[2022-12-30] MEDS ORDERED: PROPOFOL 200 MG/20 ML VIAL IV ONE (06:10)
[2022-12-30] MEDS ORDERED: NALOXONE PREFILLED SYRINGE 2 MG/2 ML SYRINGE ONE (06:21)
[2022-12-30] MEDS ORDERED: ONDANSETRON HCL/PF 4 MG/2 ML VIAL IVP ONE (06:30)
[2022-12-30] MEDS ORDERED: IV NS 0.9% 1,000 ML BAG IV ONE ×2 (06:30→07:00)
[2022-12-30] MEDS ORDERED: ONDANSETRON HCL/PF 4 MG/2 ML VIAL ONE (06:42)
[2022-12-30] MEDS ORDERED: CLINDAMYCIN 600 MG in IV D5W 100 ML IV ONE (07:00)
[2022-12-30] MEDS ORDERED: CLINDAMYCIN 600 MG in IV D5W 50 ML IV ONE (07:30)
[2022-12-30] MEDS ORDERED: PROPOFOL 100 ML IV ONE (07:30)
[2022-12-30 07:31] LABS: BASOPHILS # (AUTO) 0.2 K/uL (0.0-0.2); BASOPHILS % (AUTO) 0.8 % (0.0-2.0); EOSINOPHILS # (AUTO) 0.2 K/uL (0.0-0.7); EOSINOPHILS % (AUTO) 1.1 % (0.0-6.0); HEMATOCRIT 45 % (39-51); HEMOGLOBIN 14.3 g/dL (13.5-17.5); LYMPHOCYTES # (AUTO) 3.7 K/uL (0.8-4.8); LYMPHOCYTES % (AUTO) 17.3 % (20.0-44.0); MEAN CORPUSCULAR HEMOGLOBIN 29 PG (26.0-33.0); MEAN CORPUSCULAR HGB CONC 32 g/dl (31.0-36.0); MEAN CORPUSCULAR VOLUME 91 fL (80-96); MONOCYTES % (AUTO) 4.6 % (2.0-12.0); NEUTROPHILS # (AUTO) 16.1 K/uL (1.8-8.9); NEUTROPHILS % (AUTO) 76.2 % (43.0-81.0); PLATELET COUNT (AUTO) 224 K/uL (150-450); RED BLOOD CELL COUNT(AUTO) 4.98 MIL/uL (4.5-6.0); RED CELL DISTRIBUTION WIDTH 15.9 % (11.5-15.0); WHITE BLOOD COUNT (AUTO) 21.2 K/uL (4.3-11.0)
[2022-12-30 07:43] LABS: INR 1.14 (0.91-1.10); PARTIAL THROMBOPLASTIN TIME 24.7 SEC (24.3-34.3)
[2022-12-30 07:54] LABS: APPEARANCE,URINE CLEAR (CLEAR); BILIRUBIN,URINE NEGATIVE (NEGATIVE); BLOOD, URINE 1+ Ery/uL (NEGATIVE); COLOR,URINE YELLOW (YELLOW); KETONES,URINE NEGATIVE (NEGATIVE); LEUKOCYTE ESTERASE ,URINE NEGATIVE (NEGATIVE); NITRITE, URINE NEGATIVE (NEGATIVE); PROTEIN,URINE TRACE mg/dl (NEGATIVE); UGLUCOSE NEGATIVE (NEGATIVE); UROBILINOGEN,URINE 0.2 EU/dL (0.2)
[2022-12-30 08:32] LABS: CALCIUM, SERUM 8.5 mg/dL (8.5-10.1); CARBON DIOXIDE 19 mmol/L (21-32); CHLORIDE 99 mmol/L (98-107); CREATININE 1.9 mg/dL (0.6-1.3); GLUCOSE 202 mg/dL (74-106); POTASSIUM 5.2 mmol/L (3.5-5.1); SODIUM SERUM 139 mmol/L (136-145); UREA NITROGEN, BLOOD 22 mg/dL (7-18)
[2022-12-30 08:34] LABS: BARBITURATE, URINE NEGATIVE (NEGATIVE); BENZODIAZEPINE, URINE NEGATIVE (NEGATIVE); CANNABINOID, URINE NEGATIVE (NEGATIVE); PHENCYCLIDINE SCREEN,URINE NEGATIVE (NEGATIVE)
[2022-12-30 08:36] LABS: SERUM AMMONIA 152 umol/L (11-32)
[2022-12-30 08:39] LABS: AMPHETAMINE, URINE POSITIVE (NEGATIVE)
[2022-12-30 08:40] LABS: COCCAINE, URINE POSITIVE (NEGATIVE); OPIATE, URINE POSITIVE (NEGATIVE)
[2022-12-30 08:43] LABS: ALANINE AMINOTRANSFERASE 52 U/L (12-78); ALBUMIN 3.2 g/dL (3.4-5.0); ALCOHOL, BLOOD < 3 mg/dL (0-10); ALKALINE PHOSPHATASE 188 U/L (46-116); ASPARTATE AMINOTRANSFERASE 74 U/L (15-37); BILIRUBIN,TOTAL 0.1 mg/dL (0.2-1.0); TOTAL PROTEIN, SERUM 7.8 g/dL (6.4-8.2)
[2022-12-30 08:45] LABS: SALICYLATE < 0.2 mg/dL (2.8-20.0)
[2022-12-30] MEDS ORDERED: LISI10TA29 PO (08:50)
[2022-12-30] MEDS ORDERED: FURO80TA85 PO (08:50)
[2022-12-30 08:58] LABS: ADD URINE CULTURE NO; BACTERIA,URINE 1+ /HPF (None Seen); MUCUS,URINE Moderate /LPF (None Seen); SQUAMOUS EPITHELIAL CELL,UR None Seen /HPF (None Seen); WBC,URINE 0-2 /HPF (0-3)
[2022-12-30] MEDS ORDERED: DEXTROSE 50%-WATER 50 ML DISP.SYRIN IV ONE (09:00)
[2022-12-30] MEDS ORDERED: INSULIN REGULAR, HUMAN 100 UNIT/ML 10 ML VIAL IV ONE (09:00)
[2022-12-30] MEDS ORDERED: DEXTROSE 50%-WATER 50 ML DISP.SYRIN ONE (09:08)
[2022-12-30] MEDS ORDERED: INSULIN REGULAR, HUMAN 100 UNIT/ML 10 ML VIAL ONE (09:08)
[2022-12-30 09:15] LABS: ACETAMINOPHEN 0 ug/ml (10-30)
[2022-12-30 09:21] LABS: ABG BASE EXCESS -6.1 mmol/L; ABG OXYGEN SATURATION 92.7 % (92.0-98.5); ABG PCO2 60.6 mmHg (35.0-45.0); ABG PH 7.198 (7.350-7.450); ABG PO2 77.1 mmHg (75.0-100.0); ABG TOTAL HEMOGLOBIN 15.4 G/dL (13.5-18.0); COHb 1.1 % (0.5-1.5); MetHb 0.5 % (0.0-1.5); O2Hb 91.2 % (94.0-97.0); PEEP,BG 5 cm H2O; SITE, ABG Left Radial; VENT MODE, BG AC 20 500 +5 100%; VT, ABG 500 mL
[2022-12-30 09:25] LABS: LACTIC ACID 12.4 mmol/L (0.4-2.0)
[2022-12-30] MEDS ORDERED: SODIUM BICARBONATE SYR 50 MEQ/50 ML DISP.SYRIN ONE (09:50)
[2022-12-30] MEDS ORDERED: LACTULOSE 10 G/15 ML UDC (PYXIS) GT ONE (10:00)
[2022-12-30] MEDS ORDERED: SODIUM BICARBONATE SYR 100 MEQ in IV D5W 1,000 ML IV ONE (10:00)
[2022-12-30 10:55] LABS: BAND % (MANUAL) 13 % (0.0-5.0); LYMPHOCYTES % (MANUAL) 26 % (16-48); MONOCYTES % (MANUAL) 4 % (0-11.0); MYELOCYTES % 2 % (0-0); NEUTROPHILS % (MANUAL) 55 (42-76); PLATELET ESTIMATE ADEQUATE
[2022-12-30] MEDS ORDERED: EPINEPHRINE (1:10,000) SYRINGE 1 MG/10 ML DISP.SYRIN IVP ONE (11:17)
[2022-12-30] MEDS ORDERED: ZOLPIDEM TARTRATE 5 MG TABLET PO PRN (11:30)
[2022-12-30] MEDS ORDERED: MAG HYDROX/AL HYDROX/SIMETH 30 ML UDC PO PRN (11:30)
[2022-12-30] MEDS ORDERED: IV NS 0.9% 1,000 ML IV PRN (11:30)
[2022-12-30] MEDS ORDERED: MAGNESIUM HYDROXIDE 30 ML UDC PO PRN (11:30)
[2022-12-30] MEDS ORDERED: ONDANSETRON HCL/PF 4 MG/2 ML VIAL IVP PRN (11:30)
[2022-12-30] MEDS ORDERED: LACTULOSE 10 G/15 ML UDC (PYXIS) ONE (12:06)
[2022-12-30] MEDS ORDERED: CLINDAMYCIN IV RTU IN D5W 600 MG/50 ML PIGGYBACK IV SCH (13:00)
[2022-12-30] MEDS ORDERED: LACTULOSE 10 G/15 ML UDC (PYXIS) PO PRN (15:30)
[2022-12-30] MEDS: CLINDAMYCIN 600 MG in IV D5W 50 ML IV SCH ×2 (15:57→21:49)
[2022-12-30] MEDS: ENOXAPARIN SODIUM 40 MG/0.4 ML DISP.SYRIN SQ SCH (15:58)
[2022-12-31] VITALS (23 sets, daily range): BP systolic 94–124; BP diastolic 64–83; TEMP 98.3–99.7; O2SAT 93–96
[2022-12-31 04:22] LABS: BASOPHILS % (AUTO) 0.2 % (0.0-2.0); HEMATOCRIT 41 % (39-51); HEMOGLOBIN 13.6 g/dL (13.5-17.5); LYMPHOCYTES # (AUTO) 0.8 K/uL (0.8-4.8); LYMPHOCYTES % (AUTO) 6.9 % (20.0-44.0); MEAN CORPUSCULAR HEMOGLOBIN 29 PG (26.0-33.0); MEAN CORPUSCULAR HGB CONC 33 g/dl (31.0-36.0); MEAN CORPUSCULAR VOLUME 87 fL (80-96); MONOCYTES # (AUTO) 0.8 K/uL (0.1-1.30); MONOCYTES % (AUTO) 6.5 % (2.0-12.0); NEUTROPHILS # (AUTO) 10.1 K/uL (1.8-8.9); NEUTROPHILS % (AUTO) 86.4 % (43.0-81.0); PLATELET COUNT (AUTO) 169 K/uL (150-450); RED BLOOD CELL COUNT(AUTO) 4.76 MIL/uL (4.5-6.0); RED CELL DISTRIBUTION WIDTH 15.1 % (11.5-15.0); WHITE BLOOD COUNT (AUTO) 11.7 K/uL (4.3-11.0)
[2022-12-31 04:57] LABS: ALBUMIN 2.6 g/dL (3.4-5.0); BILIRUBIN,DIRECT 0.4 mg/dL (0.0-0.2); BILIRUBIN,TOTAL 1.2 mg/dL (0.2-1.0); CALCIUM, SERUM 8.1 mg/dL (8.5-10.1); CREATININE 1.7 mg/dL (0.6-1.3); MAGNESIUM 1.9 mg/dL (1.8-2.4); PHOSPHORUS 4.2 mg/dL (2.5-4.9); POTASSIUM 4.2 mmol/L (3.5-5.1); TOTAL PROTEIN, SERUM 6.7 g/dL (6.4-8.2)
[2022-12-31] MEDS: CLINDAMYCIN 600 MG in IV D5W 50 ML IV SCH ×3 (05:21→21:24)
[2022-12-31] MEDS: PANTOPRAZOLE 40 MG VIAL IV SCH (08:08)
[2022-12-31 08:44] LABS: ABG BASE EXCESS 2.3 mmol/L; ABG OXYGEN SATURATION 94.1 % (92.0-98.5); ABG PCO2 41.4 mmHg (35.0-45.0); ABG TOTAL HEMOGLOBIN 14.8 G/dL (13.5-18.0); AaDO2 168.6 mmHg; COHb 1.3 % (0.5-1.5); MetHb 0.2 % (0.0-1.5); O2Hb 92.7 % (94.0-97.0); SITE, ABG Left Radial
[2022-12-31 09:42] LABS: CREATININE, URINE 179.5 MG/DL (30.0-125.0); URINE TOTAL PROTEIN 54.3 mg/dL (0-11.9)
[2022-12-31 09:57] LABS: APPEARANCE,URINE CLEAR (CLEAR); BILIRUBIN,URINE NEGATIVE (NEGATIVE); BLOOD, URINE 3+ Ery/uL (NEGATIVE); COLOR,URINE YELLOW (YELLOW); KETONES,URINE NEGATIVE (NEGATIVE); LEUKOCYTE ESTERASE ,URINE NEGATIVE (NEGATIVE); NITRITE, URINE NEGATIVE (NEGATIVE); PROTEIN,URINE 1+ mg/dl (NEGATIVE); UGLUCOSE NEGATIVE (NEGATIVE)
[2022-12-31 10:26] LABS: ADD URINE CULTURE NO; BACTERIA,URINE Rare /HPF (None Seen); SQUAMOUS EPITHELIAL CELL,UR Few /HPF (None Seen); WBC,URINE 0-2 /HPF (0-3)
[2022-12-31] MEDS: ENOXAPARIN SODIUM 40 MG/0.4 ML DISP.SYRIN SQ SCH (10:33)
[2022-12-31 15:42] LABS: EOSINOPHIL,URINE None Seen
[2023-01-01] VITALS (26 sets, daily range): BP systolic 108–145; BP diastolic 78–102; TEMP 98.1–100.6; O2SAT 95–99
[2023-01-01] MEDS: ACETAMINOPHEN 325 MG TABLET PO PRN ×2 (01:11→23:52)
[2023-01-01 04:42] LABS: BASOPHILS % (AUTO) 0.3 % (0.0-2.0); EOSINOPHILS # (AUTO) 0.1 K/uL (0.0-0.7); EOSINOPHILS % (AUTO) 0.7 % (0.0-6.0); HEMATOCRIT 41 % (39-51); HEMOGLOBIN 13.5 g/dL (13.5-17.5); LYMPHOCYTES # (AUTO) 0.5 K/uL (0.8-4.8); LYMPHOCYTES % (AUTO) 6.3 % (20.0-44.0); MEAN CORPUSCULAR HEMOGLOBIN 29 PG (26.0-33.0); MEAN CORPUSCULAR HGB CONC 33 g/dl (31.0-36.0); MEAN CORPUSCULAR VOLUME 87 fL (80-96); MONOCYTES # (AUTO) 0.8 K/uL (0.1-1.30); MONOCYTES % (AUTO) 9.2 % (2.0-12.0); NEUTROPHILS % (AUTO) 83.5 % (43.0-81.0); PLATELET COUNT (AUTO) 157 K/uL (150-450); RED BLOOD CELL COUNT(AUTO) 4.69 MIL/uL (4.5-6.0); RED CELL DISTRIBUTION WIDTH 15.6 % (11.5-15.0); WHITE BLOOD COUNT (AUTO) 8.4 K/uL (4.3-11.0)
[2023-01-01 04:57] LABS: ALBUMIN 2.6 g/dL (3.4-5.0); BILIRUBIN,TOTAL 1.4 mg/dL (0.2-1.0); CALCIUM, SERUM 8.7 mg/dL (8.5-10.1); CREATININE 1.4 mg/dL (0.6-1.3); MAGNESIUM 2.4 mg/dL (1.8-2.4); PHOSPHORUS 3.1 mg/dL (2.5-4.9); POTASSIUM 4.1 mmol/L (3.5-5.1); TOTAL PROTEIN, SERUM 6.9 g/dL (6.4-8.2)
[2023-01-01] MEDS: CLINDAMYCIN 600 MG in IV D5W 50 ML IV SCH ×3 (05:27→20:04)
[2023-01-01 08:42] LABS: ABG BASE EXCESS 1.7 mmol/L; ABG OXYGEN SATURATION 95.5 % (92.0-98.5); ABG PCO2 39.3 mmHg (35.0-45.0); ABG PH 7.437 (7.350-7.450); ABG PO2 75.5 mmHg (75.0-100.0); AaDO2 164.5 mmHg; MetHb 0.2 % (0.0-1.5); O2Hb 94.4 % (94.0-97.0); PEEP,BG 5 cm H2O; SITE, ABG Right Radial; VT, ABG 525 mL
[2023-01-01] MEDS: PANTOPRAZOLE 40 MG VIAL IV SCH (08:44)
[2023-01-01] MEDS ORDERED: JEVITY 1.2 CAL 1,000 ML BOTTLE GT PRN (09:30)
[2023-01-01] MEDS: ENOXAPARIN SODIUM 40 MG/0.4 ML DISP.SYRIN SQ SCH (11:01)
[2023-01-01] MEDS: JEVITY 1.2 CAL 1,000 ML BOTTLE GT PRN (11:50)
[2023-01-01] MEDS: PROSOURCE / PROSTAT (PYXIS) 30 ML UDC GT SCH ×2 (12:55→17:09)
[2023-01-01] MEDS: BACITRACIN ZINC OINT (15 GM) 15 GM TUBE TP SCH (16:44)
[2023-01-02] VITALS (27 sets, daily range): BP systolic 127–157; BP diastolic 74–116; TEMP 99–101.3; O2SAT 95–100
[2023-01-02] MEDS: CLINDAMYCIN 600 MG in IV D5W 50 ML IV SCH (04:06)
[2023-01-02 04:21] LABS: BASOPHILS % (AUTO) 0.3 % (0.0-2.0); EOSINOPHILS # (AUTO) 0.1 K/uL (0.0-0.7); HEMATOCRIT 44 % (39-51); HEMOGLOBIN 14.4 g/dL (13.5-17.5); LYMPHOCYTES # (AUTO) 0.7 K/uL (0.8-4.8); LYMPHOCYTES % (AUTO) 8.5 % (20.0-44.0); MEAN CORPUSCULAR HEMOGLOBIN 29 PG (26.0-33.0); MEAN CORPUSCULAR HGB CONC 33 g/dl (31.0-36.0); MEAN CORPUSCULAR VOLUME 87 fL (80-96); MONOCYTES # (AUTO) 0.9 K/uL (0.1-1.30); MONOCYTES % (AUTO) 10.3 % (2.0-12.0); NEUTROPHILS # (AUTO) 6.8 K/uL (1.8-8.9); NEUTROPHILS % (AUTO) 79.9 % (43.0-81.0); PLATELET COUNT (AUTO) 167 K/uL (150-450); RED BLOOD CELL COUNT(AUTO) 5.05 MIL/uL (4.5-6.0); RED CELL DISTRIBUTION WIDTH 15.6 % (11.5-15.0); WHITE BLOOD COUNT (AUTO) 8.5 K/uL (4.3-11.0)
[2023-01-02 04:52] LABS: ALBUMIN 2.7 g/dL (3.4-5.0); BILIRUBIN,TOTAL 0.9 mg/dL (0.2-1.0); CREATININE 1.5 mg/dL (0.6-1.3); MAGNESIUM 2.4 mg/dL (1.8-2.4); PHOSPHORUS 3.3 mg/dL (2.5-4.9); POTASSIUM 4.4 mmol/L (3.5-5.1); TOTAL PROTEIN, SERUM 7.7 g/dL (6.4-8.2)
[2023-01-02 08:07] LABS: PTH, INTACT 47 pg/mL (15-65)
[2023-01-02] MEDS: PANTOPRAZOLE 40 MG/PACK PACK NG SCH (09:40)
[2023-01-02] MEDS: BACITRACIN ZINC OINT (15 GM) 15 GM TUBE TP SCH ×2 (09:41→17:35)
[2023-01-02] MEDS: PROSOURCE / PROSTAT (PYXIS) 30 ML UDC GT SCH ×3 (09:41→17:35)
[2023-01-02] MEDS ORDERED: VANCOMYCIN 1.5 GM in IV D5W 500ml IV ONE (12:00)
[2023-01-02] MEDS: ENOXAPARIN SODIUM 40 MG/0.4 ML DISP.SYRIN SQ SCH (12:15)
[2023-01-02] MEDS: CEFEPIME 1 GM in IV D5W 50 ML IV SCH ×2 (12:21→21:00)
[2023-01-02] MEDS: JEVITY 1.2 CAL 1,000 ML BOTTLE GT PRN (12:22)
[2023-01-02] MEDS: ACETAMINOPHEN 325 MG TABLET PO PRN ×2 (12:32→22:06)
[2023-01-02 13:07] LABS: *SPE A/G RATIO 0.8 (0.7-1.7); *SPE ALBUMIN 2.8 g/dL (2.9-4.4); *SPE ALPHA-1-GLOBULIN 0.3 g/dL (0.0-0.4); *SPE ALPHA-2-GLOBULIN 0.7 g/dL (0.4-1.0); *SPE BETA GLOBULIN 0.9 g/dL (0.7-1.3); *SPE GLOBULIN, TOTAL 3.3 g/dL (2.2-3.9); *SPE M-SPIKE Not Observed g/dL (Not Observed); *SPE PROTEIN TOTAL 6.1 g/dL (6.0-8.5); *SPEGAMMA GLOBULIN 1.4 g/dL (0.4-1.8)
[2023-01-03] VITALS (24 sets, daily range): BP systolic 133–158; BP diastolic 90–108; TEMP 98.7–99.8; O2SAT 95–99
[2023-01-03 05:20] LABS: CALCIUM, SERUM 8.5 mg/dL (8.5-10.1); CREATININE 1.2 mg/dL (0.6-1.3); POTASSIUM 4.2 mmol/L (3.5-5.1)
[2023-01-03] MEDS ORDERED: MAG HYDROX/AL HYDROX/SIMETH 30 ML UDC NG PRN (08:25)
[2023-01-03] MEDS ORDERED: MAGNESIUM HYDROXIDE 30 ML UDC NG PRN (08:27)
[2023-01-03] MEDS ORDERED: LACTULOSE 10 G/15 ML UDC (PYXIS) NG PRN (08:27)
[2023-01-03] MEDS ORDERED: ACETAMINOPHEN 650 MG/20.3 ML UDC PO PRN (08:30)
[2023-01-03] MEDS: PANTOPRAZOLE 40 MG/PACK PACK NG SCH (08:47)
[2023-01-03] MEDS: CARVEDILOL 6.25 MG TABLET NG SCH ×2 (08:47→21:11)
[2023-01-03] MEDS: SPIRONOLACTONE 25 MG TABLET NG SCH (08:47)
[2023-01-03] MEDS: CEFEPIME 1 GM in IV D5W 50 ML IV SCH ×2 (08:47→21:00)
[2023-01-03] MEDS: Z GUARD REMEDY 4 OZ OINT TP PRN (08:48)
[2023-01-03] MEDS: BACITRACIN ZINC OINT (15 GM) 15 GM TUBE TP SCH ×2 (08:48→16:59)
[2023-01-03] MEDS: PROSOURCE / PROSTAT (PYXIS) 30 ML UDC GT SCH ×3 (08:49→16:58)
[2023-01-03] MEDS: ENOXAPARIN SODIUM 40 MG/0.4 ML DISP.SYRIN SQ SCH (10:39)
[2023-01-03] MEDS: VANCOMYCIN HCL 0.75 GM in IV D5W 250 ML IV SCH ×3 (11:37)
[2023-01-03] MEDS: JEVITY 1.2 CAL 1,000 ML BOTTLE GT PRN (11:37)
[2023-01-03] MEDS: ACETAMINOPHEN 650 MG/20.3 ML UDC NG PRN (21:10)
[2023-01-04] VITALS (24 sets, daily range): BP systolic 118–161; BP diastolic 83–116; TEMP 98.1–101; O2SAT 93–98
[2023-01-04] MEDS: VANCOMYCIN HCL 0.75 GM in IV D5W 250 ML IV SCH ×2
[2023-01-04 05:37] LABS: CALCIUM, SERUM 8.7 mg/dL (8.5-10.1); CREATININE 1.1 mg/dL (0.6-1.3); POTASSIUM 4.3 mmol/L (3.5-5.1)
[2023-01-04] MEDS: ACETAMINOPHEN 650 MG/20.3 ML UDC NG PRN ×2 (06:05→16:01)
[2023-01-04] MEDS: JEVITY 1.2 CAL 1,000 ML BOTTLE GT PRN (06:05)
[2023-01-04] MEDS: CEFEPIME 1 GM in IV D5W 50 ML IV SCH ×2 (08:20→21:00)
[2023-01-04] MEDS: CARVEDILOL 6.25 MG TABLET NG SCH ×2 (08:20→21:16)
[2023-01-04] MEDS: PANTOPRAZOLE 40 MG/PACK PACK NG SCH (08:21)
[2023-01-04] MEDS: Z GUARD REMEDY 4 OZ OINT TP PRN (08:21)
[2023-01-04] MEDS: SPIRONOLACTONE 25 MG TABLET NG SCH (08:21)
[2023-01-04] MEDS: PROSOURCE / PROSTAT (PYXIS) 30 ML UDC GT SCH ×3 (08:22→16:01)
[2023-01-04] MEDS: MODAFINIL 100 MG TABLET PO SCH (08:46)
[2023-01-04] MEDS: BACITRACIN ZINC OINT (15 GM) 15 GM TUBE TP SCH ×2 (08:46→16:02)
[2023-01-04] MEDS: ENOXAPARIN SODIUM 40 MG/0.4 ML DISP.SYRIN SQ SCH (11:27)
[2023-01-04] MEDS: VANCOMYCIN 1 GM in IV D5W 250 ML IV SCH (11:29)
[2023-01-05] VITALS (24 sets, daily range): BP systolic 132–166; BP diastolic 91–108; TEMP 99.7–101.1; O2SAT 94–99
[2023-01-05 06:20] LABS: BASOPHILS % (AUTO) 0.5 % (0.0-2.0); EOSINOPHILS # (AUTO) 0.3 K/uL (0.0-0.7); EOSINOPHILS % (AUTO) 4.4 % (0.0-6.0); HEMATOCRIT 42 % (39-51); HEMOGLOBIN 14.2 g/dL (13.5-17.5); LYMPHOCYTES # (AUTO) 0.7 K/uL (0.8-4.8); LYMPHOCYTES % (AUTO) 9.7 % (20.0-44.0); MEAN CORPUSCULAR HEMOGLOBIN 29 PG (26.0-33.0); MEAN CORPUSCULAR HGB CONC 34 g/dl (31.0-36.0); MEAN CORPUSCULAR VOLUME 86 fL (80-96); MONOCYTES # (AUTO) 0.8 K/uL (0.1-1.30); MONOCYTES % (AUTO) 10.7 % (2.0-12.0); NEUTROPHILS # (AUTO) 5.8 K/uL (1.8-8.9); NEUTROPHILS % (AUTO) 74.7 % (43.0-81.0); PLATELET COUNT (AUTO) 190 K/uL (150-450); RED BLOOD CELL COUNT(AUTO) 4.92 MIL/uL (4.5-6.0); RED CELL DISTRIBUTION WIDTH 15.1 % (11.5-15.0); WHITE BLOOD COUNT (AUTO) 7.8 K/uL (4.3-11.0)
[2023-01-05] MEDS: JEVITY 1.2 CAL 1,000 ML BOTTLE GT PRN (06:22)
[2023-01-05 06:23] LABS: CREATININE 1.1 mg/dL (0.6-1.3); POTASSIUM 4.2 mmol/L (3.5-5.1)
[2023-01-05] MEDS: SPIRONOLACTONE 25 MG TABLET NG SCH (09:37)
[2023-01-05] MEDS: PANTOPRAZOLE 40 MG/PACK PACK NG SCH (09:37)
[2023-01-05] MEDS: PROSOURCE / PROSTAT (PYXIS) 30 ML UDC GT SCH ×3 (09:37→17:12)
[2023-01-05] MEDS: MODAFINIL 100 MG TABLET PO SCH (09:38)
[2023-01-05] MEDS: CEFEPIME 1 GM in IV D5W 50 ML IV SCH ×2 (09:38→20:56)
[2023-01-05] MEDS: CARVEDILOL 6.25 MG TABLET NG SCH ×2 (09:38→20:37)
[2023-01-05] MEDS: ENOXAPARIN SODIUM 40 MG/0.4 ML DISP.SYRIN SQ SCH (09:39)
[2023-01-05] MEDS: BACITRACIN ZINC OINT (15 GM) 15 GM TUBE TP SCH ×2 (09:44→17:13)
[2023-01-05] MEDS: VANCOMYCIN 1 GM in IV D5W 250 ML IV SCH ×3 (12:01)
[2023-01-05] MEDS: ACETAMINOPHEN 650 MG/20.3 ML UDC NG PRN (18:15)
[2023-01-06] VITALS (25 sets, daily range): BP systolic 117–167; BP diastolic 85–114; TEMP 99.4–101.2; O2SAT 92–100
[2023-01-06] MEDS: VANCOMYCIN 1 GM in IV D5W 250 ML IV SCH ×2 (00:30→12:06)
[2023-01-06] MEDS: ACETAMINOPHEN 650 MG/20.3 ML UDC NG PRN ×2 (00:37→20:09)
[2023-01-06] MEDS: JEVITY 1.2 CAL 1,000 ML BOTTLE GT PRN (01:31)
[2023-01-06 06:07] LABS: BASOPHILS # (AUTO) 0.1 K/uL (0.0-0.2); EOSINOPHILS # (AUTO) 0.3 K/uL (0.0-0.7); EOSINOPHILS % (AUTO) 3.3 % (0.0-6.0); HEMATOCRIT 44 % (39-51); HEMOGLOBIN 14.4 g/dL (13.5-17.5); LYMPHOCYTES # (AUTO) 0.9 K/uL (0.8-4.8); LYMPHOCYTES % (AUTO) 11.1 % (20.0-44.0); MEAN CORPUSCULAR HEMOGLOBIN 28 PG (26.0-33.0); MEAN CORPUSCULAR HGB CONC 33 g/dl (31.0-36.0); MEAN CORPUSCULAR VOLUME 87 fL (80-96); MONOCYTES # (AUTO) 0.8 K/uL (0.1-1.30); MONOCYTES % (AUTO) 10.2 % (2.0-12.0); NEUTROPHILS # (AUTO) 5.8 K/uL (1.8-8.9); NEUTROPHILS % (AUTO) 74.4 % (43.0-81.0); PLATELET COUNT (AUTO) 200 K/uL (150-450); RED BLOOD CELL COUNT(AUTO) 5.05 MIL/uL (4.5-6.0); RED CELL DISTRIBUTION WIDTH 15.3 % (11.5-15.0); WHITE BLOOD COUNT (AUTO) 7.8 K/uL (4.3-11.0)
[2023-01-06 06:19] LABS: CALCIUM, SERUM 9.2 mg/dL (8.5-10.1); CREATININE 1.2 mg/dL (0.6-1.3); MAGNESIUM 2.2 mg/dL (1.8-2.4); PHOSPHORUS 3.8 mg/dL (2.5-4.9); POTASSIUM 4.1 mmol/L (3.5-5.1)
[2023-01-06] MEDS: SPIRONOLACTONE 25 MG TABLET NG SCH (08:49)
[2023-01-06] MEDS: PANTOPRAZOLE 40 MG/PACK PACK NG SCH (08:49)
[2023-01-06] MEDS: MODAFINIL 100 MG TABLET PO SCH (08:49)
[2023-01-06] MEDS: CARVEDILOL 6.25 MG TABLET NG SCH ×2 (08:50→20:33)
[2023-01-06] MEDS: BACITRACIN ZINC OINT (15 GM) 15 GM TUBE TP SCH ×2 (08:51→16:12)
[2023-01-06] MEDS: ENOXAPARIN SODIUM 40 MG/0.4 ML DISP.SYRIN SQ SCH (08:51)
[2023-01-06] MEDS: PROSOURCE / PROSTAT (PYXIS) 30 ML UDC GT SCH ×3 (08:52→16:12)
[2023-01-06] MEDS ORDERED: CEFEPIME 2 GM in IV D5W 100 ML IV SCH (12:00)
[2023-01-06] MEDS: MEROPENEM 1 G in IV NS 0.9% 100 ML IV SCH (20:33)
[2023-01-06] MEDS ORDERED: MEROPENEM 500 MG in IV NS 0.9% 50 ML IV SCH (21:00)
[2023-01-07] VITALS (24 sets, daily range): BP systolic 106–162; BP diastolic 76–119; TEMP 98.4–100.3; O2SAT 89–100
[2023-01-07] MEDS: JEVITY 1.2 CAL 1,000 ML BOTTLE GT PRN ×2 (00:32→15:26)
[2023-01-07] MEDS: VANCOMYCIN 1 GM in IV D5W 250 ML IV SCH ×2 (00:35→12:20)
[2023-01-07] MEDS: IV NS 0.9% 250 ML IV PRN (01:31)
[2023-01-07] MEDS: MEROPENEM 1 G in IV NS 0.9% 100 ML IV SCH ×3 (04:41→20:30)
[2023-01-07 04:42] LABS: BASOPHILS # (AUTO) 0.1 K/uL (0.0-0.2); BASOPHILS % (AUTO) 0.9 % (0.0-2.0); EOSINOPHILS # (AUTO) 0.2 K/uL (0.0-0.7); EOSINOPHILS % (AUTO) 2.9 % (0.0-6.0); HEMATOCRIT 43 % (39-51); LYMPHOCYTES # (AUTO) 0.9 K/uL (0.8-4.8); LYMPHOCYTES % (AUTO) 10.3 % (20.0-44.0); MEAN CORPUSCULAR HEMOGLOBIN 28 PG (26.0-33.0); MEAN CORPUSCULAR HGB CONC 33 g/dl (31.0-36.0); MEAN CORPUSCULAR VOLUME 86 fL (80-96); MONOCYTES # (AUTO) 0.9 K/uL (0.1-1.30); MONOCYTES % (AUTO) 10.3 % (2.0-12.0); NEUTROPHILS # (AUTO) 6.3 K/uL (1.8-8.9); NEUTROPHILS % (AUTO) 75.6 % (43.0-81.0); PLATELET COUNT (AUTO) 230 K/uL (150-450); RED BLOOD CELL COUNT(AUTO) 4.93 MIL/uL (4.5-6.0); WHITE BLOOD COUNT (AUTO) 8.3 K/uL (4.3-11.0)
[2023-01-07 05:12] LABS: CREATININE 1.1 mg/dL (0.6-1.3); MAGNESIUM 2.4 mg/dL (1.8-2.4); PHOSPHORUS 3.6 mg/dL (2.5-4.9); POTASSIUM 4.1 mmol/L (3.5-5.1)
[2023-01-07] MEDS: PROSOURCE / PROSTAT (PYXIS) 30 ML UDC GT SCH ×3 (08:44→16:05)
[2023-01-07] MEDS: SPIRONOLACTONE 25 MG TABLET NG SCH (08:44)
[2023-01-07] MEDS: CARVEDILOL 6.25 MG TABLET NG SCH (08:44)
[2023-01-07] MEDS: MODAFINIL 100 MG TABLET PO SCH (08:45)
[2023-01-07] MEDS: BACITRACIN ZINC OINT (15 GM) 15 GM TUBE TP SCH ×2 (08:45→16:06)
[2023-01-07] MEDS: PANTOPRAZOLE 40 MG/PACK PACK NG SCH (08:45)
[2023-01-07] MEDS ORDERED: CARVEDILOL 6.25 MG TABLET NG SCH (09:00)
[2023-01-07] MEDS: VALSARTAN 80 MG TABLET NG SCH (09:09)
[2023-01-07] MEDS: ENOXAPARIN SODIUM 40 MG/0.4 ML DISP.SYRIN SQ SCH (12:20)
[2023-01-07] MEDS: ACETAMINOPHEN 650 MG/20.3 ML UDC NG PRN ×2 (16:05→20:06)
[2023-01-07] MEDS ORDERED: CLONIDINE HCL 0.1 MG TABLET GT PRN (16:30)
[2023-01-07] MEDS: CARVEDILOL 12.5 MG TABLET PO SCH (20:30)
[2023-01-07] MEDS ORDERED: METOPROLOL TARTRATE 25 MG TABLET GT SCH (21:00)
[2023-01-08] VITALS (25 sets, daily range): BP systolic 113–148; BP diastolic 80–102; TEMP 97.9–99.3; O2SAT 91–99
[2023-01-08] MEDS: VANCOMYCIN 1 GM in IV D5W 250 ML IV SCH ×3 (00:25→23:52)
[2023-01-08] MEDS: MEROPENEM 1 G in IV NS 0.9% 100 ML IV SCH ×3 (04:29→20:35)
[2023-01-08] MEDS: IV NS 0.9% 250 ML IV PRN (04:30)
[2023-01-08 04:31] LABS: BASOPHILS # (AUTO) 0.2 K/uL (0.0-0.2); BASOPHILS % (AUTO) 2.3 % (0.0-2.0); EOSINOPHILS # (AUTO) 0.2 K/uL (0.0-0.7); EOSINOPHILS % (AUTO) 2.8 % (0.0-6.0); HEMATOCRIT 42 % (39-51); LYMPHOCYTES % (AUTO) 11.4 % (20.0-44.0); MEAN CORPUSCULAR HEMOGLOBIN 29 PG (26.0-33.0); MEAN CORPUSCULAR HGB CONC 33 g/dl (31.0-36.0); MEAN CORPUSCULAR VOLUME 87 fL (80-96); MONOCYTES # (AUTO) 0.8 K/uL (0.1-1.30); MONOCYTES % (AUTO) 8.7 % (2.0-12.0); NEUTROPHILS # (AUTO) 6.5 K/uL (1.8-8.9); NEUTROPHILS % (AUTO) 74.8 % (43.0-81.0); PLATELET COUNT (AUTO) 253 K/uL (150-450); RED BLOOD CELL COUNT(AUTO) 4.91 MIL/uL (4.5-6.0); WHITE BLOOD COUNT (AUTO) 8.7 K/uL (4.3-11.0)
[2023-01-08 04:41] LABS: CALCIUM, SERUM 8.7 mg/dL (8.5-10.1); CREATININE 1.1 mg/dL (0.6-1.3); MAGNESIUM 2.4 mg/dL (1.8-2.4); PHOSPHORUS 3.6 mg/dL (2.5-4.9); POTASSIUM 4.3 mmol/L (3.5-5.1)
[2023-01-08] MEDS: PROSOURCE / PROSTAT (PYXIS) 30 ML UDC GT SCH ×3 (09:12→18:39)
[2023-01-08] MEDS: MODAFINIL 100 MG TABLET PO SCH (09:12)
[2023-01-08] MEDS: SPIRONOLACTONE 25 MG TABLET NG SCH (09:12)
[2023-01-08] MEDS: PANTOPRAZOLE 40 MG/PACK PACK NG SCH (09:12)
[2023-01-08] MEDS: CARVEDILOL 12.5 MG TABLET PO SCH ×2 (09:12→20:35)
[2023-01-08] MEDS: VALSARTAN 80 MG TABLET NG SCH (09:13)
[2023-01-08] MEDS: BACITRACIN ZINC OINT (15 GM) 15 GM TUBE TP SCH ×2 (09:30→17:24)
[2023-01-08] MEDS: ENOXAPARIN SODIUM 40 MG/0.4 ML DISP.SYRIN SQ SCH (12:12)
[2023-01-08] MEDS: JEVITY 1.2 CAL 1,000 ML BOTTLE GT PRN ×2 (13:33→13:48)
[2023-01-09] VITALS (26 sets, daily range): BP systolic 99–149; BP diastolic 69–109; TEMP 97.1–99; O2SAT 73–100
[2023-01-09] MEDS: IV NS 0.9% 250 ML IV PRN (00:47)
[2023-01-09 04:04] LABS: CALCIUM, SERUM 8.3 mg/dL (8.5-10.1); CREATININE 1.1 mg/dL (0.6-1.3)
[2023-01-09] MEDS: MEROPENEM 1 G in IV NS 0.9% 100 ML IV SCH ×2 (05:16→13:00)
[2023-01-09] MEDS: VALSARTAN 80 MG TABLET NG SCH (08:23)
[2023-01-09] MEDS: MODAFINIL 100 MG TABLET PO SCH (08:23)
[2023-01-09] MEDS: QUETIAPINE FUMARATE 25 MG TABLET PO SCH ×3 (08:23→21:20)
[2023-01-09] MEDS: BACITRACIN ZINC OINT (15 GM) 15 GM TUBE TP SCH ×2 (08:24→17:31)
[2023-01-09] MEDS: CARVEDILOL 12.5 MG TABLET PO SCH ×2 (08:24→21:21)
[2023-01-09] MEDS: SPIRONOLACTONE 25 MG TABLET NG SCH (08:24)
[2023-01-09] MEDS: PANTOPRAZOLE 40 MG/PACK PACK NG SCH (08:24)
[2023-01-09] MEDS: PROSOURCE / PROSTAT (PYXIS) 30 ML UDC GT SCH ×3 (08:24→17:31)
[2023-01-09] MEDS: FUROSEMIDE 40 MG/4 ML VIAL IV SCH ×3 (11:53→17:31)
[2023-01-09] MEDS: POTASSIUM CHLORIDE 20 MEQ TAB.PRT.SR PO SCH ×2 (11:53→11:54)
[2023-01-09] MEDS: VANCOMYCIN 1 GM in IV D5W 250 ML IV SCH (11:55)
[2023-01-09] MEDS: ENOXAPARIN SODIUM 40 MG/0.4 ML DISP.SYRIN SQ SCH (11:56)
[2023-01-09] MEDS: JEVITY 1.2 CAL 1,000 ML BOTTLE GT PRN (14:52)
[2023-01-10] VITALS (26 sets, daily range): BP systolic 84–131; BP diastolic 58–109; TEMP 97.5–99.4; O2SAT 88–100
[2023-01-10 04:35] LABS: BASOPHILS # (AUTO) 0.1 K/uL (0.0-0.2); BASOPHILS % (AUTO) 0.8 % (0.0-2.0); EOSINOPHILS # (AUTO) 0.2 K/uL (0.0-0.7); HEMATOCRIT 47 % (39-51); HEMOGLOBIN 15.4 g/dL (13.5-17.5); LYMPHOCYTES # (AUTO) 1.6 K/uL (0.8-4.8); LYMPHOCYTES % (AUTO) 15.2 % (20.0-44.0); MEAN CORPUSCULAR HEMOGLOBIN 28 PG (26.0-33.0); MEAN CORPUSCULAR HGB CONC 33 g/dl (31.0-36.0); MEAN CORPUSCULAR VOLUME 87 fL (80-96); MONOCYTES # (AUTO) 1.1 K/uL (0.1-1.30); MONOCYTES % (AUTO) 10.3 % (2.0-12.0); NEUTROPHILS # (AUTO) 7.5 K/uL (1.8-8.9); NEUTROPHILS % (AUTO) 71.7 % (43.0-81.0); PLATELET COUNT (AUTO) 348 K/uL (150-450); RED BLOOD CELL COUNT(AUTO) 5.43 MIL/uL (4.5-6.0); WHITE BLOOD COUNT (AUTO) 10.4 K/uL (4.3-11.0)
[2023-01-10 04:51] LABS: ALBUMIN 2.8 g/dL (3.4-5.0); BILIRUBIN,TOTAL 0.5 mg/dL (0.2-1.0); CALCIUM, SERUM 9.1 mg/dL (8.5-10.1); CREATININE 1.4 mg/dL (0.6-1.3); MAGNESIUM 2.7 mg/dL (1.8-2.4); PHOSPHORUS 4.9 mg/dL (2.5-4.9); POTASSIUM 4.6 mmol/L (3.5-5.1); TOTAL PROTEIN, SERUM 8.4 g/dL (6.4-8.2)
[2023-01-10] MEDS: PROSOURCE / PROSTAT (PYXIS) 30 ML UDC GT SCH ×3 (09:02→16:51)
[2023-01-10] MEDS: BACITRACIN ZINC OINT (15 GM) 15 GM TUBE TP SCH ×2 (09:03→16:51)
[2023-01-10] MEDS: MODAFINIL 100 MG TABLET PO SCH (09:06)
[2023-01-10] MEDS: PANTOPRAZOLE 40 MG/PACK PACK NG SCH (09:07)
[2023-01-10] MEDS: CARVEDILOL 12.5 MG TABLET PO SCH (09:07)
[2023-01-10] MEDS: QUETIAPINE FUMARATE 25 MG TABLET PO SCH ×2 (09:07)
[2023-01-10] MEDS: SPIRONOLACTONE 25 MG TABLET NG SCH (09:08)
[2023-01-10] MEDS: VALSARTAN 80 MG TABLET NG SCH (09:08)
[2023-01-10] MEDS: JEVITY 1.2 CAL 1,000 ML BOTTLE GT PRN (10:53)
[2023-01-10] MEDS: ENOXAPARIN SODIUM 40 MG/0.4 ML DISP.SYRIN SQ SCH (10:55)
[2023-01-10] MEDS: QUETIAPINE FUMARATE 25 MG TABLET NG SCH (21:22)
[2023-01-10] MEDS: CARVEDILOL 12.5 MG TABLET NG SCH (21:23)
[2023-01-11] VITALS (24 sets, daily range): BP systolic 92–163; BP diastolic 66–119; TEMP 97.6–98.9; O2SAT 92–100
[2023-01-11 05:34] LABS: CALCIUM, SERUM 9.2 mg/dL (8.5-10.1); CREATININE 1.5 mg/dL (0.6-1.3); POTASSIUM 4.3 mmol/L (3.5-5.1)
[2023-01-11 05:41] LABS: BASOPHILS # (AUTO) 0.1 K/uL (0.0-0.2); BASOPHILS % (AUTO) 0.7 % (0.0-2.0); EOSINOPHILS # (AUTO) 0.2 K/uL (0.0-0.7); EOSINOPHILS % (AUTO) 1.5 % (0.0-6.0); HEMATOCRIT 46 % (39-51); HEMOGLOBIN 15.1 g/dL (13.5-17.5); LYMPHOCYTES # (AUTO) 1.4 K/uL (0.8-4.8); LYMPHOCYTES % (AUTO) 13.8 % (20.0-44.0); MEAN CORPUSCULAR HEMOGLOBIN 29 PG (26.0-33.0); MEAN CORPUSCULAR HGB CONC 33 g/dl (31.0-36.0); MEAN CORPUSCULAR VOLUME 87 fL (80-96); MONOCYTES # (AUTO) 1.1 K/uL (0.1-1.30); MONOCYTES % (AUTO) 10.6 % (2.0-12.0); NEUTROPHILS # (AUTO) 7.5 K/uL (1.8-8.9); NEUTROPHILS % (AUTO) 73.4 % (43.0-81.0); PLATELET COUNT (AUTO) 356 K/uL (150-450); RED BLOOD CELL COUNT(AUTO) 5.24 MIL/uL (4.5-6.0); RED CELL DISTRIBUTION WIDTH 15.1 % (11.5-15.0); WHITE BLOOD COUNT (AUTO) 10.2 K/uL (4.3-11.0)
[2023-01-11] MEDS: QUETIAPINE FUMARATE 25 MG TABLET NG SCH ×2 (09:10→20:59)
[2023-01-11] MEDS: CARVEDILOL 12.5 MG TABLET NG SCH ×2 (09:11→20:58)
[2023-01-11] MEDS: SPIRONOLACTONE 25 MG TABLET NG SCH (09:11)
[2023-01-11] MEDS: PANTOPRAZOLE 40 MG/PACK PACK NG SCH (09:11)
[2023-01-11] MEDS: BACITRACIN ZINC OINT (15 GM) 15 GM TUBE TP SCH ×2 (09:11→17:46)
[2023-01-11] MEDS: PROSOURCE / PROSTAT (PYXIS) 30 ML UDC GT SCH ×3 (09:12→17:46)
[2023-01-11] MEDS: MODAFINIL 100 MG TABLET NG SCH (09:28)
[2023-01-11] MEDS ORDERED: QUETIAPINE FUMARATE 25 MG TABLET NG ONE (10:30)
[2023-01-11] MEDS: ENOXAPARIN SODIUM 40 MG/0.4 ML DISP.SYRIN SQ SCH (12:04)
[2023-01-11] MEDS: JEVITY 1.2 CAL 1,000 ML BOTTLE GT PRN (12:42)
[2023-01-12] VITALS (24 sets, daily range): BP systolic 92–138; BP diastolic 60–97; TEMP 97.7–99.2; O2SAT 91–100
[2023-01-12 05:15] LABS: CALCIUM, SERUM 8.7 mg/dL (8.5-10.1); CREATININE 1.2 mg/dL (0.6-1.3); POTASSIUM 4.2 mmol/L (3.5-5.1)
[2023-01-12] MEDS: CARVEDILOL 12.5 MG TABLET NG SCH ×2 (08:42→20:15)
[2023-01-12] MEDS: MODAFINIL 100 MG TABLET NG SCH (08:42)
[2023-01-12] MEDS: BACITRACIN ZINC OINT (15 GM) 15 GM TUBE TP SCH ×2 (08:42→16:42)
[2023-01-12] MEDS: SPIRONOLACTONE 25 MG TABLET NG SCH (08:42)
[2023-01-12] MEDS: QUETIAPINE FUMARATE 25 MG TABLET NG SCH ×2 (08:43→20:14)
[2023-01-12] MEDS: PANTOPRAZOLE 40 MG/PACK PACK NG SCH (08:43)
[2023-01-12] MEDS: PROSOURCE / PROSTAT (PYXIS) 30 ML UDC GT SCH ×3 (08:56→16:42)
[2023-01-12] MEDS: ENOXAPARIN SODIUM 40 MG/0.4 ML DISP.SYRIN SQ SCH (11:30)
[2023-01-12] MEDS ORDERED: ROCURONIUM BROMIDE 50 MG/5 ML IV ONE (14:00)
[2023-01-12] MEDS ORDERED: FENTANYL PF 100MCG/2ML AMPUL IV ONE (14:00)
[2023-01-12] MEDS ORDERED: MIDAZOLAM HCL 2 MG/2ML VIAL IV ONE ×2 (14:00→14:30)
[2023-01-12] MEDS ORDERED: MIDAZOLAM HCL 2 MG/2ML VIAL ONE (14:16)
[2023-01-12] MEDS ORDERED: VECURONIUM 10 MG VIAL IV ONE (15:52)
[2023-01-13] VITALS (18 sets, daily range): BP systolic 91–132; BP diastolic 63–78; TEMP 97.3–99; O2SAT 94–98
[2023-01-13] MEDS: LORAZEPAM INJ 2 MG/ML VIAL IV PRN (04:51)
[2023-01-13 07:34] LABS: CALCIUM, SERUM 8.9 mg/dL (8.5-10.1); CREATININE 1.4 mg/dL (0.6-1.3)
[2023-01-13] MEDS: PROSOURCE / PROSTAT (PYXIS) 30 ML UDC GT SCH ×3 (09:15→16:43)
[2023-01-13] MEDS: BACITRACIN ZINC OINT (15 GM) 15 GM TUBE TP SCH ×2 (09:16→16:43)
[2023-01-13] MEDS: PANTOPRAZOLE 40 MG/PACK PACK NG SCH (09:18)
[2023-01-13] MEDS: SPIRONOLACTONE 25 MG TABLET NG SCH (09:18)
[2023-01-13] MEDS: CARVEDILOL 12.5 MG TABLET NG SCH ×2 (09:18→21:39)
[2023-01-13] MEDS: QUETIAPINE FUMARATE 25 MG TABLET NG SCH ×2 (09:18→21:34)
[2023-01-13] MEDS: MODAFINIL 100 MG TABLET NG SCH (09:18)
[2023-01-13 09:20] LABS: BASOPHILS # (AUTO) 0.1 K/uL (0.0-0.2); BASOPHILS % (AUTO) 0.9 % (0.0-2.0); EOSINOPHILS # (AUTO) 0.2 K/uL (0.0-0.7); EOSINOPHILS % (AUTO) 1.8 % (0.0-6.0); HEMATOCRIT 45 % (39-51); HEMOGLOBIN 14.8 g/dL (13.5-17.5); LYMPHOCYTES # (AUTO) 1.1 K/uL (0.8-4.8); LYMPHOCYTES % (AUTO) 11.2 % (20.0-44.0); MEAN CORPUSCULAR HEMOGLOBIN 28 PG (26.0-33.0); MEAN CORPUSCULAR HGB CONC 33 g/dl (31.0-36.0); MEAN CORPUSCULAR VOLUME 87 fL (80-96); MONOCYTES # (AUTO) 1.1 K/uL (0.1-1.30); MONOCYTES % (AUTO) 10.8 % (2.0-12.0); NEUTROPHILS # (AUTO) 7.6 K/uL (1.8-8.9); NEUTROPHILS % (AUTO) 75.3 % (43.0-81.0); PLATELET COUNT (AUTO) 341 K/uL (150-450); RED CELL DISTRIBUTION WIDTH 15.2 % (11.5-15.0); WHITE BLOOD COUNT (AUTO) 10.1 K/uL (4.3-11.0)
[2023-01-13] MEDS: ENOXAPARIN SODIUM 40 MG/0.4 ML DISP.SYRIN SQ SCH (10:51)
[2023-01-13] MEDS: JEVITY 1.2 CAL 1,000 ML BOTTLE GT PRN (16:42)
[2023-01-13] MEDS: ACETAMINOPHEN 650 MG/20.3 ML UDC NG PRN (22:42)
[2023-01-14] VITALS: BP 117/72; TEMP 98.4; O2SAT 95
[2023-01-14 04:00] VITALS: BP 108/78; TEMP 98.4; O2SAT 97
[2023-01-14 08:00] VITALS: BP 109/94; TEMP 98.1; O2SAT 95
[2023-01-14 08:23] LABS: BASOPHILS # (AUTO) 0.1 K/uL (0.0-0.2); BASOPHILS % (AUTO) 0.6 % (0.0-2.0); EOSINOPHILS # (AUTO) 0.1 K/uL (0.0-0.7); EOSINOPHILS % (AUTO) 0.9 % (0.0-6.0); HEMATOCRIT 45 % (39-51); HEMOGLOBIN 14.7 g/dL (13.5-17.5); LYMPHOCYTES # (AUTO) 0.9 K/uL (0.8-4.8); LYMPHOCYTES % (AUTO) 7.8 % (20.0-44.0); MEAN CORPUSCULAR HEMOGLOBIN 28 PG (26.0-33.0); MEAN CORPUSCULAR HGB CONC 33 g/dl (31.0-36.0); MEAN CORPUSCULAR VOLUME 87 fL (80-96); MONOCYTES # (AUTO) 1.7 K/uL (0.1-1.30); MONOCYTES % (AUTO) 14.8 % (2.0-12.0); NEUTROPHILS # (AUTO) 8.8 K/uL (1.8-8.9); NEUTROPHILS % (AUTO) 75.9 % (43.0-81.0); PLATELET COUNT (AUTO) 315 K/uL (150-450); WHITE BLOOD COUNT (AUTO) 11.6 K/uL (4.3-11.0)
[2023-01-14 08:31] LABS: CALCIUM, SERUM 9.1 mg/dL (8.5-10.1); CREATININE 1.2 mg/dL (0.6-1.3); POTASSIUM 4.1 mmol/L (3.5-5.1)
[2023-01-14] MEDS: PROSOURCE / PROSTAT (PYXIS) 30 ML UDC GT SCH ×3 (09:00→17:00)
[2023-01-14] MEDS: CARVEDILOL 12.5 MG TABLET NG SCH ×2 (09:00→21:43)
[2023-01-14] MEDS: SPIRONOLACTONE 25 MG TABLET NG SCH (09:00)
[2023-01-14] MEDS: PANTOPRAZOLE 40 MG/PACK PACK NG SCH (09:40)
[2023-01-14] MEDS: QUETIAPINE FUMARATE 25 MG TABLET NG SCH ×2 (09:40→21:44)
[2023-01-14] MEDS: ENOXAPARIN SODIUM 40 MG/0.4 ML DISP.SYRIN SQ SCH (11:04)
[2023-01-14 12:00] VITALS: BP 106/69; TEMP 98.4; O2SAT 94
[2023-01-14] MEDS: BACITRACIN ZINC OINT (15 GM) 15 GM TUBE TP SCH ×2 (13:21→17:15)
[2023-01-14] MEDS: LORAZEPAM INJ 2 MG/ML VIAL IV PRN (15:30)
[2023-01-14 16:00] VITALS: BP 135/98; TEMP 98.5; O2SAT 92
[2023-01-14 20:00] VITALS: BP 121/81; TEMP 98.8; O2SAT 92
[2023-01-15] VITALS: BP 121/81; TEMP 98.1; O2SAT 92
[2023-01-15 04:00] VITALS: BP 115/78; TEMP 98.1; O2SAT 92
[2023-01-15 08:00] VITALS: BP 110/69; TEMP 99.1; O2SAT 96
[2023-01-15] MEDS: PANTOPRAZOLE 40 MG/PACK PACK NG SCH (08:59)
[2023-01-15] MEDS: QUETIAPINE FUMARATE 25 MG TABLET NG SCH ×2 (09:00→20:33)
[2023-01-15] MEDS: SPIRONOLACTONE 25 MG TABLET NG SCH (09:00)
[2023-01-15] MEDS: CARVEDILOL 12.5 MG TABLET NG SCH ×2 (09:01→20:33)
[2023-01-15] MEDS: PROSOURCE / PROSTAT (PYXIS) 30 ML UDC GT SCH (09:02)
[2023-01-15] MEDS: BACITRACIN ZINC OINT (15 GM) 15 GM TUBE TP SCH ×2 (09:02→17:50)
[2023-01-15 12:00] VITALS: BP 98/69; TEMP 101.7; O2SAT 96
[2023-01-15] MEDS: ENOXAPARIN SODIUM 40 MG/0.4 ML DISP.SYRIN SQ SCH (12:28)
[2023-01-15] MEDS: ACETAMINOPHEN 650 MG/20.3 ML UDC NG PRN (13:00)
[2023-01-15 16:00] VITALS: BP 103/74; TEMP 99.1; O2SAT 97
[2023-01-15] MEDS: JEVITY 1.2 CAL 1,000 ML BOTTLE GT PRN (18:01)
[2023-01-15 20:00] VITALS: BP 121/69; TEMP 99.7; O2SAT 95
[2023-01-16] VITALS (7 sets, daily range): BP systolic 101–142; BP diastolic 72–114; TEMP 97.8–102.9; O2SAT 94–97
[2023-01-16] MEDS: SPIRONOLACTONE 25 MG TABLET NG SCH (08:15)
[2023-01-16] MEDS: ACETAMINOPHEN 650 MG/20.3 ML UDC NG PRN ×2 (08:15→12:20)
[2023-01-16] MEDS: PANTOPRAZOLE 40 MG/PACK PACK NG SCH (08:15)
[2023-01-16] MEDS: QUETIAPINE FUMARATE 25 MG TABLET NG SCH ×2 (08:16→21:03)
[2023-01-16] MEDS: BACITRACIN ZINC OINT (15 GM) 15 GM TUBE TP SCH ×2 (08:17→17:38)
[2023-01-16] MEDS: CARVEDILOL 12.5 MG TABLET NG SCH ×2 (08:17→21:04)
[2023-01-16] MEDS ORDERED: VANCOMYCIN 1 GM in IV D5W 250 ML IV ONE (11:00)
[2023-01-16] MEDS: ENOXAPARIN SODIUM 40 MG/0.4 ML DISP.SYRIN SQ SCH (11:37)
[2023-01-16] MEDS ORDERED: CLINDAMYCIN IV RTU IN D5W 900 MG/50 ML PIGGYBACK IV SCH (12:00)
[2023-01-16] MEDS: CLINDAMYCIN 900 MG in IV D5W 50 ML IV SCH ×2 (12:20→21:00)
[2023-01-16 13:44] LABS: APPEARANCE,URINE CLOUDY (CLEAR); BILIRUBIN,URINE NEGATIVE (NEGATIVE); BLOOD, URINE 1+ Ery/uL (NEGATIVE); COLOR,URINE DARK YELLOW (YELLOW); KETONES,URINE NEGATIVE (NEGATIVE); LEUKOCYTE ESTERASE ,URINE NEGATIVE (NEGATIVE); NITRITE, URINE NEGATIVE (NEGATIVE); PROTEIN,URINE 1+ mg/dl (NEGATIVE); UGLUCOSE NEGATIVE (NEGATIVE)
[2023-01-16 14:29] LABS: ADD URINE CULTURE NO; BACTERIA,URINE Rare /HPF (None Seen); SQUAMOUS EPITHELIAL CELL,UR Moderate /HPF (None Seen); WBC,URINE 0-2 /HPF (0-3)
[2023-01-16] MEDS: JEVITY 1.2 CAL 1,000 ML BOTTLE GT PRN (17:47)
[2023-01-16] MEDS: VANCOMYCIN 1 GM in IV D5W 250ml IV SCH (22:57)
[2023-01-17 01:12] VITALS: BP 111/65; TEMP 101.7; O2SAT 95
[2023-01-17] MEDS: ACETAMINOPHEN 650 MG/20.3 ML UDC NG PRN (01:27)
[2023-01-17 04:00] VITALS: BP 109/68; TEMP 99.6; O2SAT 95
[2023-01-17] MEDS: CLINDAMYCIN 900 MG in IV D5W 50 ML IV SCH ×2 (04:49→13:03)
[2023-01-17 07:16] LABS: CALCIUM, SERUM 8.9 mg/dL (8.5-10.1); CREATININE 1.7 mg/dL (0.6-1.3)
[2023-01-17 08:00] VITALS: BP 97/64; TEMP 99.5; O2SAT 95
[2023-01-17] MEDS: CARVEDILOL 12.5 MG TABLET NG SCH ×2 (09:00→21:00)
[2023-01-17] MEDS: SPIRONOLACTONE 25 MG TABLET NG SCH (10:13)
[2023-01-17] MEDS: VANCOMYCIN 1 GM in IV D5W 250ml IV SCH ×2 (10:13→22:36)
[2023-01-17] MEDS: PANTOPRAZOLE 40 MG/PACK PACK NG SCH (10:13)
[2023-01-17] MEDS: QUETIAPINE FUMARATE 25 MG TABLET NG SCH ×2 (10:13→20:58)
[2023-01-17] MEDS: BACITRACIN ZINC OINT (15 GM) 15 GM TUBE TP SCH ×2 (10:14→16:36)
[2023-01-17] MEDS: ENOXAPARIN SODIUM 40 MG/0.4 ML DISP.SYRIN SQ SCH (11:32)
[2023-01-17 12:00] VITALS: BP 116/71; TEMP 99.3; O2SAT 96
[2023-01-17] MEDS ORDERED: MEROPENEM 1 G in IV NS 0.9% 100 ML IV SCH ×2 (14:30→16:00)
[2023-01-17] MEDS: JEVITY 1.2 CAL 1,000 ML BOTTLE GT PRN (15:45)
[2023-01-17 16:00] VITALS: BP 100/60; TEMP 98.6; O2SAT 96
[2023-01-17 19:07] LABS: APPEARANCE,URINE SLIGHTLY CLOUDY (CLEAR); BILIRUBIN,URINE NEGATIVE (NEGATIVE); BLOOD, URINE TRACE-INTA Ery/uL (NEGATIVE); COLOR,URINE YELLOW (YELLOW); KETONES,URINE NEGATIVE (NEGATIVE); LEUKOCYTE ESTERASE ,URINE NEGATIVE (NEGATIVE); NITRITE, URINE NEGATIVE (NEGATIVE); PROTEIN,URINE 1+ mg/dl (NEGATIVE); UGLUCOSE NEGATIVE (NEGATIVE)
[2023-01-17 19:09] LABS: CREATININE, URINE 171.5 MG/DL (30.0-125.0); URINE TOTAL PROTEIN 68.5 mg/dL (0-11.9)
[2023-01-17 19:19] LABS: URIC ACID CRYSTALS,URINE Moderate /HPF (None Seen); WBC,URINE 0-2 /HPF (0-3)
[2023-01-17 19:20] LABS: ADD URINE CULTURE NO; BACTERIA,URINE RARE /HPF (None Seen); MUCUS,URINE Few /LPF (None Seen)
[2023-01-17 19:22] LABS: EOSINOPHIL,URINE None Seen
[2023-01-17 20:00] VITALS: BP 109/68; TEMP 98.4; O2SAT 97
[2023-01-18] VITALS: BP 95/66; TEMP 98.8; O2SAT 96
[2023-01-18] MEDS: MEROPENEM 1 G in IV NS 0.9% 100 ML IV SCH ×2 (01:59→14:42)
[2023-01-18 04:00] VITALS: BP 96/62; TEMP 98.1; O2SAT 96
[2023-01-18 06:47] LABS: BASOPHILS % (AUTO) 0.5 % (0.0-2.0); EOSINOPHILS # (AUTO) 0.1 K/uL (0.0-0.7); EOSINOPHILS % (AUTO) 1.4 % (0.0-6.0); HEMATOCRIT 44 % (39-51); LYMPHOCYTES # (AUTO) 1.1 K/uL (0.8-4.8); LYMPHOCYTES % (AUTO) 14.2 % (20.0-44.0); MEAN CORPUSCULAR HEMOGLOBIN 28 PG (26.0-33.0); MEAN CORPUSCULAR HGB CONC 32 g/dl (31.0-36.0); MEAN CORPUSCULAR VOLUME 88 fL (80-96); MONOCYTES # (AUTO) 0.9 K/uL (0.1-1.30); MONOCYTES % (AUTO) 11.1 % (2.0-12.0); NEUTROPHILS # (AUTO) 5.7 K/uL (1.8-8.9); NEUTROPHILS % (AUTO) 72.8 % (43.0-81.0); PLATELET COUNT (AUTO) 237 K/uL (150-450); RED BLOOD CELL COUNT(AUTO) 4.96 MIL/uL (4.5-6.0); RED CELL DISTRIBUTION WIDTH 15.4 % (11.5-15.0); WHITE BLOOD COUNT (AUTO) 7.9 K/uL (4.3-11.0)
[2023-01-18 07:05] LABS: ALBUMIN 2.2 g/dL (3.4-5.0); BILIRUBIN,TOTAL 0.5 mg/dL (0.2-1.0); CALCIUM, SERUM 8.9 mg/dL (8.5-10.1); CREATININE 1.5 mg/dL (0.6-1.3); PHOSPHORUS 4.2 mg/dL (2.5-4.9); POTASSIUM 4.3 mmol/L (3.5-5.1); TOTAL PROTEIN, SERUM 8.2 g/dL (6.4-8.2)
[2023-01-18 08:00] VITALS: BP 118/74; TEMP 97.9; O2SAT 96
[2023-01-18] MEDS: QUETIAPINE FUMARATE 25 MG TABLET NG SCH ×2 (09:46→22:53)
[2023-01-18] MEDS: PANTOPRAZOLE 40 MG/PACK PACK NG SCH (09:46)
[2023-01-18] MEDS: SPIRONOLACTONE 25 MG TABLET NG SCH (09:46)
[2023-01-18] MEDS: CARVEDILOL 12.5 MG TABLET NG SCH ×2 (09:46→22:54)
[2023-01-18] MEDS: JEVITY 1.2 CAL 1,000 ML BOTTLE GT PRN (10:00)
[2023-01-18] MEDS: BACITRACIN ZINC OINT (15 GM) 15 GM TUBE TP SCH ×2 (10:14→17:10)
[2023-01-18] MEDS: VANCOMYCIN HCL 0.75 GM in IV D5W 250 ML IV SCH ×2 (11:13→22:59)
[2023-01-18] MEDS: ENOXAPARIN SODIUM 40 MG/0.4 ML DISP.SYRIN SQ SCH (11:42)
[2023-01-18 12:00] VITALS: BP 100/70; TEMP 98.2; O2SAT 97
[2023-01-18 16:00] VITALS: BP 101/57; TEMP 98.6; O2SAT 96
[2023-01-18 20:00] VITALS: BP 95/48; TEMP 99; O2SAT 98
[2023-01-19] VITALS (7 sets, daily range): BP systolic 95–126; BP diastolic 65–81; TEMP 97–100.6; O2SAT 94–98
[2023-01-19] MEDS: MEROPENEM 1 G in IV NS 0.9% 100 ML IV SCH ×2 (02:02→15:01)
[2023-01-19 06:52] LABS: CALCIUM, SERUM 8.8 mg/dL (8.5-10.1); CREATININE 1.3 mg/dL (0.6-1.3); POTASSIUM 4.3 mmol/L (3.5-5.1)
[2023-01-19] MEDS: IV D5W 1,000 ML IV PRN ×2 (08:02→21:41)
[2023-01-19] MEDS: LORAZEPAM INJ 2 MG/ML VIAL IV PRN (08:06)
[2023-01-19] MEDS: SPIRONOLACTONE 25 MG TABLET NG SCH (10:30)
[2023-01-19] MEDS: CARVEDILOL 12.5 MG TABLET NG SCH ×2 (10:32→21:15)
[2023-01-19] MEDS: QUETIAPINE FUMARATE 25 MG TABLET NG SCH ×2 (10:32→21:15)
[2023-01-19] MEDS: PANTOPRAZOLE 40 MG/PACK PACK NG SCH (10:32)
[2023-01-19] MEDS: VANCOMYCIN HCL 0.75 GM in IV D5W 250 ML IV SCH ×2 (10:34→22:16)
[2023-01-19] MEDS: BACITRACIN ZINC OINT (15 GM) 15 GM TUBE TP SCH ×2 (10:34→18:01)
[2023-01-19] MEDS: ENOXAPARIN SODIUM 40 MG/0.4 ML DISP.SYRIN SQ SCH (11:04)
[2023-01-19] MEDS: ACETAMINOPHEN 650 MG/20.3 ML UDC NG PRN ×2 (14:54→15:01)
[2023-01-19] MEDS: JEVITY 1.2 CAL 1,000 ML BOTTLE GT PRN (22:16)
[2023-01-20] VITALS: BP 126/84; TEMP 97.2; O2SAT 100
[2023-01-20] MEDS: MEROPENEM 1 G in IV NS 0.9% 100 ML IV SCH ×2 (01:28→15:14)
[2023-01-20] MEDS: LORAZEPAM INJ 2 MG/ML VIAL IV PRN (03:23)
[2023-01-20 04:00] VITALS: BP 116/80; TEMP 96.8; O2SAT 99
[2023-01-20 08:00] VITALS: BP 113/83; TEMP 97.5; O2SAT 100
[2023-01-20 08:04] LABS: CALCIUM, SERUM 8.8 mg/dL (8.5-10.1); CREATININE 1.1 mg/dL (0.6-1.3); POTASSIUM 4.2 mmol/L (3.5-5.1)
[2023-01-20] MEDS: BACITRACIN ZINC OINT (15 GM) 15 GM TUBE TP SCH ×2 (09:34→17:00)
[2023-01-20] MEDS: SPIRONOLACTONE 25 MG TABLET NG SCH (09:36)
[2023-01-20] MEDS: PANTOPRAZOLE 40 MG/PACK PACK NG SCH (09:36)
[2023-01-20] MEDS: QUETIAPINE FUMARATE 25 MG TABLET NG SCH ×2 (09:37→22:04)
[2023-01-20] MEDS: CARVEDILOL 12.5 MG TABLET NG SCH ×2 (09:37→22:05)
[2023-01-20] MEDS: ENOXAPARIN SODIUM 40 MG/0.4 ML DISP.SYRIN SQ SCH (11:30)
[2023-01-20 12:00] VITALS: BP 110/74; TEMP 98.1; O2SAT 99
[2023-01-20 16:00] VITALS: BP 107/78; TEMP 98.9; O2SAT 99
[2023-01-20] MEDS ORDERED: SILVER NITRATE APPLICATOR 1 EA BOX ONE (19:54)
[2023-01-20 20:00] VITALS: BP 136/91; TEMP 97.7; O2SAT 99
[2023-01-20] MEDS ORDERED: VANCOMYCIN 1.25 GM in IV D5W 250 ML IV SCH (23:00)
[2023-01-21] VITALS (7 sets, daily range): BP systolic 106–149; BP diastolic 53–83; TEMP 97.3–99.2; O2SAT 97–100
[2023-01-21] MEDS: MEROPENEM 1 G in IV NS 0.9% 100 ML IV SCH (02:23)
[2023-01-21 07:38] LABS: CALCIUM, SERUM 8.4 mg/dL (8.5-10.1); CREATININE 1.1 mg/dL (0.6-1.3); POTASSIUM 5.1 mmol/L (3.5-5.1)
[2023-01-21] MEDS: LORAZEPAM INJ 2 MG/ML VIAL IV PRN ×2 (08:17→21:37)
[2023-01-21] MEDS: PANTOPRAZOLE 40 MG/PACK PACK NG SCH (08:36)
[2023-01-21] MEDS: CARVEDILOL 12.5 MG TABLET NG SCH ×2 (08:36→21:37)
[2023-01-21] MEDS: BACITRACIN ZINC OINT (15 GM) 15 GM TUBE TP SCH ×2 (08:37→17:00)
[2023-01-21] MEDS: SPIRONOLACTONE 25 MG TABLET NG SCH (08:37)
[2023-01-21] MEDS: QUETIAPINE FUMARATE 25 MG TABLET NG SCH ×2 (08:37→21:37)
[2023-01-21] MEDS ORDERED: ENOX40DI SQ (10:46)
[2023-01-21] MEDS ORDERED: LACT-209 GT (10:46)
[2023-01-21] MEDS ORDERED: Quetiapine Fumarate NG (10:46)
[2023-01-21] MEDS ORDERED: LACT10SO58 NG (10:46)
[2023-01-21] MEDS ORDERED: ACET650S26 NG (10:46)
[2023-01-21] MEDS ORDERED: CARV12.52 NG (10:46)
[2023-01-21] MEDS ORDERED: FURO-145 GT (10:46)
[2023-01-21] MEDS ORDERED: CLON0.1T GT (10:46)
[2023-01-21] MEDS ORDERED: SPIR25TA6 NG (10:46)
[2023-01-21] MEDS: JEVITY 1.2 CAL 1,000 ML BOTTLE GT PRN (11:24)
[2023-01-21] MEDS: ENOXAPARIN SODIUM 40 MG/0.4 ML DISP.SYRIN SQ SCH (11:50)
[2023-01-21] MEDS: ACETAMINOPHEN 650 MG/20.3 ML UDC NG PRN (11:55)
[2023-01-22 00:32] VITALS: BP 108/88; TEMP 97.8
[2023-01-22 04:00] VITALS: BP 108/77; TEMP 97; O2SAT 100
[2023-01-22 08:00] VITALS: BP 104/76; TEMP 97.7; O2SAT 100
[2023-01-22] MEDS: IV D5W 1,000 ML IV PRN (08:50)
[2023-01-22] MEDS: SPIRONOLACTONE 25 MG TABLET NG SCH (08:50)
[2023-01-22] MEDS: BACITRACIN ZINC OINT (15 GM) 15 GM TUBE TP SCH ×2 (08:51→16:29)
[2023-01-22] MEDS: PANTOPRAZOLE 40 MG/PACK PACK NG SCH (08:51)
[2023-01-22] MEDS: QUETIAPINE FUMARATE 25 MG TABLET NG SCH ×2 (08:51→20:58)
[2023-01-22] MEDS: CARVEDILOL 12.5 MG TABLET NG SCH ×2 (08:51→21:00)
[2023-01-22] MEDS: ENOXAPARIN SODIUM 40 MG/0.4 ML DISP.SYRIN SQ SCH (10:34)
[2023-01-22 12:00] VITALS: BP 104/70; TEMP 98.1; O2SAT 100
[2023-01-22 16:00] VITALS: BP 119/61; TEMP 99.1; O2SAT 99
[2023-01-22] MEDS: ACETAMINOPHEN 650 MG/20.3 ML UDC NG PRN (17:34)
[2023-01-22] MEDS: JEVITY 1.2 CAL 1,000 ML BOTTLE GT PRN (17:42)
[2023-01-22 20:00] VITALS: BP 117/60; TEMP 97.3; O2SAT 100
[2023-01-23] VITALS: BP 115/62; TEMP 97.8; O2SAT 100
[2023-01-23] MEDS: LORAZEPAM INJ 2 MG/ML VIAL IV PRN (03:17)
[2023-01-23 04:00] VITALS: BP 118/60; TEMP 97.6; O2SAT 100
[2023-01-23] MEDS: IV D5W 1,000 ML IV PRN (04:32)
[2023-01-23 08:00] VITALS: BP 127/79; TEMP 98.2; O2SAT 99
[2023-01-23] MEDS: PANTOPRAZOLE 40 MG/PACK PACK NG SCH (09:21)
[2023-01-23] MEDS: QUETIAPINE FUMARATE 25 MG TABLET NG SCH (09:21)
[2023-01-23] MEDS: SPIRONOLACTONE 25 MG TABLET NG SCH (09:21)
[2023-01-23] MEDS: CARVEDILOL 12.5 MG TABLET NG SCH (09:22)
[2023-01-23] MEDS: BACITRACIN ZINC OINT (15 GM) 15 GM TUBE TP SCH ×2 (09:23→16:17)
[2023-01-23] MEDS: JEVITY 1.2 CAL 1,000 ML BOTTLE GT PRN (09:27)
[2023-01-23] MEDS: ENOXAPARIN SODIUM 40 MG/0.4 ML DISP.SYRIN SQ SCH (10:44)
[2023-01-23 12:00] VITALS: BP 115/74; TEMP 98.6; O2SAT 99
[2023-01-23 16:00] VITALS: BP 104/73; TEMP 97.5; O2SAT 99
== END 2023-01-23 18:26 | DRG 5 ==
LOC: ER 06:09 → ICU 13:06 → TELE1 01-13 16:07
PROVIDERS: ADMIT Student in an Organized Health Care Education/Training Program; ATTEND Internal Medicine
PROC: 5A1955Z Respiratory Ventilation, Greater than 96 Consecutive Hours (ICD-10-PCS; principal; 2022-12-30)
PROC: 0BH17EZ Insertion of Endotracheal Airway into Trachea, Via Natural or Artificial Opening (ICD-10-PCS; 2022-12-30)
PROC: 5A2204Z Restoration of Cardiac Rhythm, Single (ICD-10-PCS; 2022-12-30)
PROC: 05H933Z Insertion of Infusion Device into Right Brachial Vein, Percutaneous Approach (ICD-10-PCS; 2023-01-02)
PROC: 05HA33Z Insertion of Infusion Device into Left Brachial Vein, Percutaneous Approach (ICD-10-PCS; 2023-01-09)
PROC: 0B113F4 Bypass Trachea to Cutaneous with Tracheostomy Device, Percutaneous Approach (ICD-10-PCS; 2023-01-12)
PROC: 0BJ08ZZ Inspection of Tracheobronchial Tree, Via Natural or Artificial Opening Endoscopic (ICD-10-PCS; 2023-01-12)
PROC: 0DH63UZ Insertion of Feeding Device into Stomach, Percutaneous Approach (ICD-10-PCS; 2023-01-20)
DX: T50.911A Poisoning by multiple unspecified drugs, medicaments and biological substances, accidental (unintentional), initial encounter (principal); N17.0 Acute kidney failure with tubular necrosis; J69.0 Pneumonitis due to inhalation of food and vomit; G92.8 Other toxic encephalopathy; A41.9 Sepsis, unspecified organism; I50.43 Acute on chronic combined systolic (congestive) and diastolic (congestive) heart failure; E44.1 Mild protein-calorie malnutrition; E72.20 Disorder of urea cycle metabolism, unspecified; J96.02 Acute respiratory failure with hypercapnia; J96.01 Acute respiratory failure with hypoxia; Y92.002 Bathroom of unspecified non-institutional (private) residence as the place of occurrence of the external cause; Z20.822 Contact with and (suspected) exposure to COVID-19; K29.70 Gastritis, unspecified, without bleeding; Z90.49 Acquired absence of other specified parts of digestive tract; Z88.0 Allergy status to penicillin; Z79.899 Other long term (current) drug therapy; I11.0 Hypertensive heart disease with heart failure; I42.9 Cardiomyopathy, unspecified; F17.210 Nicotine dependence, cigarettes, uncomplicated; L03.115 Cellulitis of right lower limb; L03.116 Cellulitis of left lower limb; E78.5 Hyperlipidemia, unspecified; R94.6 Abnormal results of thyroid function studies; E87.5 Hyperkalemia; J44.9 Chronic obstructive pulmonary disease, unspecified; D68.59 Other primary thrombophilia; Z74.09 Other reduced mobility; E87.0 Hyperosmolality and hypernatremia; E87.20 Acidosis, unspecified; G93.1 Anoxic brain damage, not elsewhere classified; I87.2 Venous insufficiency (chronic) (peripheral); J98.11 Atelectasis; J90 Pleural effusion, not elsewhere classified; R13.10 Dysphagia, unspecified; Z59.00 Homelessness unspecified; F19.90 Other psychoactive substance use, unspecified, uncomplicated
CPT/HCPCS: 31720; 36410; 36415; 36600; 43246; 70450-TC; 71045-TC; 72125-TC; 74018; 76770-TC; 80048-TC; 80053-TC; 80076-TC; 80202-TC; 81001; 82140-TC; 82550-TC; 82553; 82570-TC; 82803-TC; 82962-TC; 83605-TC; 83735-TC; 83970; 84100-TC; 84155; 84165; 84300-TC; 84439-TC; 84443-TC; 84484-TC; 85025-TC; 85730-TC; 87040-TC; 87081-TC; 87086-TC; 93307-TC; 94002-TC; 94003-TC; 94640-TC; 94760-TC; 94799-TC; 95819-TC; 99082-TC; A4223; A4623; A6253; A6403; C9113; C9803; G0378; G0480; J0171; J0692; J1650; J1815; J1940; J2060; J2185; J2250; J2310; J2405; J2704; J3010; J3370; J3490; J7030; J7040; J7050; J7060; J7070